=== PATIENT | female | born 1950 | race Caucasian/White ===

== ENCOUNTER → 2017-09-10 | Outpatient (CLI) | payer OTHER, MEDICARE | LOC: BMCIMAGING 08:48 | PROVIDERS: ATTEND Internal Medicine Rheumatology | DX: M25.862 Other specified joint disorders, left knee (principal); M25.551 Pain in right hip ==

== ENCOUNTER → 2017-12-03 | Outpatient (CLI) | payer OTHER, MEDICARE | LOC: BMCIMAGING 10:52 | PROVIDERS: ATTEND Orthopaedic Surgery | PROC: 3E0U3GC Introduction of Other Therapeutic Substance into Joints, Percutaneous Approach (ICD-10-PCS; principal; 2017-12-03) | DX: M25.551 Pain in right hip (principal) ==

== ENCOUNTER → 2017-12-12 | Outpatient (CLI) | payer OTHER, MEDICARE | LOC: FIMAGING 11:52 | PROVIDERS: ATTEND Orthopaedic Surgery | DX: Z01.818 Encounter for other preprocedural examination (principal); M17.12 Unilateral primary osteoarthritis, left knee ==

== ENCOUNTER 2018-01-06 06:05 | Observation (INO) | payer OTHER, MEDICARE ==
[~2018-01-06 06:05] MED LIST: ROPIVACAINE 0.2% 80 MG, EPINEPHrine 0.2 MG, KETOROLAC TROMETHAMINE 30 MG, morphINE 10 M... IU ONE; TRANEXAMIC ACID 1,000 MG in NS 100 ML IV ONE
--- NOTE | 2018-01-06 06:14 | PDHPUP ---
History & Physical Update H&P update statement: This history and physical update is based on an assessment of the patient which was completed after admission or registration (within 24 hours), but prior to the surgery/procedure. H&P update: no change in patient's condition since H&P completed
--- NOTE | 2018-01-06 06:15 | PDIAF ---
- Diagnosis Diagnosis: left knee djd Code Status: Full Code - Medication Management Discharge Medications: Medications to Continue on Transfer Chlorthalidone 12/12/17 [Last Taken Unknown] Cholecalciferol (Vitamin D3) 12/12/17 [Last Taken Unknown] Ibuprofen 12/12/17 [Last Taken Unknown] Iron 12/12/17 [Last Taken Unknown] Magnesium 12/12/17 [Last Taken Unknown] Potassium Chloride 12/12/17 [Last Taken Unknown] Ranitidine HCl 12/12/17 [Last Taken Unknown] Sertraline HCl 12/12/17 [Last Taken Unknown] Voltaren 0.1% (*) 12/12/17 [Last Taken Unknown] Zolpidem Tartrate 12/12/17 [Last Taken Unknown] Discharge Medications: Refer to the Discharge Home Medication list for PRN reason. - Orders Services needed: Physical Therapy Diet Recommendation: no restrictions on diet Diet Texture: Regular Texture Diet Additional Instructions: TOTAL JOINT ARTHROPLASTY DISCHARGE INSTRUCTIONS 1. Your surgeon follows the [facility] protocol for reducing your risk of DVT (blood clots) following surgery. Medication will be ordered to prevent blood clots. A sudden increase in calf pain and/or swelling could indicate a blood clot in your leg. If this occurs, please call your surgeon or his/her child development assistant. An ultrasound of the leg may be necessary to diagnose a blood clot. If you have conditions that make you a higher risk for blood clots, your surgeon may use more aggressive ways to prevent them. Notify your surgeon if you think you are a high risk for blood clots. 2. Wear your white surgical stockings (SKY hose) for 2 weeks. This decreases your swelling and may help prevent blood clots. It is ok to remove SKY hose at night time to give your legs a break. 3. Swelling and bruising in the surgical leg is common. If you feel that it is excessive, please notify your surgeon. 4. Elevate your surgical leg with the ankle above the hip several times every day. Please keep the leg straight when you elevate by putting pillows under your foot. Do not put pillows under your knee. This will make being able to fully straighten more difficult. This is uncomfortable, but try to do it as much as possible. 5. For total knee replacements use compressive wrap on your knee for 3-5 days after surgery, then you can discontinue it. 6. Use a walker or crutches for 1-2 weeks. Progress your weight-bearing as tolerated. You may start to use a cane when you feel stable and safe. 7. You will receive physical therapy instructions in the hospital. Continue those exercises at home. There are additional exercises in the total joint booklet you were given before surgery. Outpatient physical therapy will begin 7- 10 days after surgery. Please schedule this in advance. 8. Use ice on your knee at least 3-5 times every day for 30 minutes. This helps reduce pain and swelling. Also use it at night before falling asleep. 9. Leave your surgical dressing in place for 2 weeks. Your dressing is water resistant, but not waterproof. Cover it with Saran Wrap or Necto-f-Hegb before showering. You may shower as soon as you feel safe entering a shower. If you notice bleeding from your incision 2 or 3 days after surgery, please notify your surgeon. 10. Due to narcotics, decreased activity and altered diet, most patients experience constipation after surgery. Use ffze-pff-lbtjlsm stool softeners while you are on narcotics. 11. You may drive a car when you are comfortable bearing weight, have good muscular control of your leg and are off narcotics. This usually occurs 2-4 weeks after surgery, depending on which leg was operated on. 12. If there are questions not addressed here, please refer the [facility] book given for more information. If you still have questions, please contact your surgeon s office. 13. If you have a life-threatening emergency, please call 911 and go to the emergency room immediately. For non-life threatening emergencies, please call your physicians office for advice before going to the emergency room. - Follow Up Care Current Providers and Referrals: Carli Harding PA [Primary Care Provider] - Paul Hutson MD [Medical Doctor] -
[2018-01-06] MEDS ORDERED: ceFAZolin 2 GM/DEXTROSE 100 ML IV ONE (06:23)
[2018-01-06] MEDS ORDERED: LIDOCAINE 1% 2 ML INJ ID PRN (06:23)
[2018-01-06] MEDS ORDERED: ACETAMINOPHEN 325 MG TAB PO ONE (06:23)
[2018-01-06] MEDS ORDERED: FAMOTIDINE 20 MG TAB PO ONE (06:23)
[2018-01-06] MEDS ORDERED: LR 1,000 ML IV ONE (06:23)
[2018-01-06] MEDS ORDERED: ceFAZolin 1 GM/5 ML SYR ONE (06:28)
--- NOTE | 2018-01-06 06:52 | PDANEPAE ---
ANE Past Medical History - Cardiovascular History Hx Hypertension: Yes Hx Arrhythmias: No Hx Chest Pain: No Hx Coronary Artery / Peripheral Vascular Disease: No Hx CHF / Valvular Disease: No Hx Palpitations: No - Pulmonary History Hx COPD: No Hx Asthma/Reactive Airway Disease: No Hx Recent Upper Respiratory Infection: No Hx Oxygen in Use at Home: No Hx Sleep Apnea: No Sleep Apnea Screening Result - Last Documented: Negative - Neurologic History Hx Cerebrovascular Accident: No Hx Seizures: No Hx Dementia: No - Endocrine History Hx Diabetes: No Hypothyroid: No Hyperthyroid: No Obesity: no - Renal History Hx Renal Disorders: No - Liver History Hx Hepatic Disorders: No - Neurological & Psychiatric Hx Hx Neurological and Psychiatric Disorders: Yes Neurological / Psychiatric History Comment: anxiety - Cancer History Hx Cancer: No - Congenital Disorder History Hx Congenital Disorders: No - GI History GERD: mild Hx Gastrointestinal Disorders: Yes Gastrointestinal History Comment: reflux,gerd,diverticulitis - Other Health History Other Health History: bilat leg itching. anemia. hysterectomy - Chronic Pain History Chronic Pain: Yes (right groin area) - Surgical History Prior Surgeries: arthroscopic L knee sx 12/15. hysterectomy 1999. cataract bilat ANE Review of Systems Review of Systems: - Exercise capacity METS (RN): 4 METS ANE Patient History - Allergies Allergies/Adverse Reactions: No Known Allergies Allergy (Verified 12/12/17 15:52) - Home Medications Home Medications: Chlorthalidone 12/12/17 [Last Taken 11/08/17] Cholecalciferol (Vitamin D3) 12/12/17 [Last Taken 01/01/18] Ibuprofen 12/12/17 [Last Taken 12/29/17] Iron 12/12/17 [Last Taken 01/01/18] Magnesium 12/12/17 [Last Taken 01/01/18] Potassium Chloride 12/12/17 [Last Taken 01/01/18] Ranitidine HCl 12/12/17 [Last Taken 01/01/18] Sertraline HCl 12/12/17 [Last Taken 01/05/18] Voltaren 0.1% (*) 12/12/17 [Last Taken 01/02/18] Zolpidem Tartrate 12/12/17 [Last Taken 01/05/18] - Anes Hx Anes Hx: no prior problems - Smoking Hx Smoking Status: Former smoker - Alcohol Use Alcohol Use: Occasionally - Family Anes Hx Family Anes Hx: neg - N/A Family Hx Anesthesia Complications: none ANE Labs/Vital Signs - Vital Signs Height: 160.02 cm Weight: 69.4 kg ANE Physical Exam - Airway Neck exam: FROM Mallampati Score: Class 2 Mouth exam: normal dental/mouth exam - Pulmonary Pulmonary: no respiratory distress, no rales or rhonchi, clear to auscultation - Cardiovascular Cardiovascular: regular rate and rhythym, no murmur, rub, or gallop - ASA Status ASA Status: II ANE Anesthesia Plan Anesthesia Plan: MAC, spinal Regional Anesthesia: single shot NB, adductor canal FNB Total IV Anesthesia: No
[2018-01-06] MEDS ORDERED: MIDAZOLAM 2 MG/2 ML VIAL ONE (07:05)
[2018-01-06] MEDS ORDERED: MIDAZOLAM 2 MG/2 ML VIAL IVP ONE (07:05)
[2018-01-06] MEDS ORDERED: fentaNYL 100 MCG/2 ML INJ ONE ×2 (07:12→09:35)
[2018-01-06] MEDS ORDERED: PROPOFOL/EMULSION 500 MG/50 ML BOTTLE IV ONE (07:13)
[2018-01-06] MEDS ORDERED: RANITIDINE 50 MG/2 ML VIAL ONE (07:29)
[2018-01-06] MEDS ORDERED: SUCCINYLCHOLINE CHLORIDE 200 MG/10 ML SYR IVP ONE (07:42)
[2018-01-06] MEDS ORDERED: THROMBIN (BOVINE) 5,000 UNIT VIAL TP ONE (07:45)
[2018-01-06] MEDS ORDERED: CALCIUM CHLORIDE 1 GM/10 ML INJ ONE (07:45)
[2018-01-06] MEDS ORDERED: oxyCODONE IR 5 MG TAB PO PRN (08:04)
[2018-01-06] MEDS ORDERED: ONDANSETRON 4 MG/2 ML VIAL IVP PRN ×2 (08:04→08:21)
[2018-01-06] MEDS ORDERED: LR 500 ML IV PRN (08:04)
[2018-01-06] MEDS ORDERED: HYDROCODONE/APAP 5/325 TAB PO PRN (08:04)
[2018-01-06] MEDS ORDERED: PHENYLEPHRINE HCL 100 MCG/ML SYR IVP PRN (08:04)
[2018-01-06] MEDS ORDERED: PROMETHAZINE HCL 25 MG/ML INJ IVP PRN ×2 (08:04→08:21)
[2018-01-06] MEDS ORDERED: ACETAMINOPHEN 500 MG TAB PO PRN (08:04)
[2018-01-06] MEDS ORDERED: NALOXONE HCL 0.4 MG/ML INJ IVP PRN (08:04)
[2018-01-06] MEDS ORDERED: DEXAMETHASONE 4 MG/ML VIAL ONE (08:07)
[2018-01-06] MEDS ORDERED: KETOROLAC 30 MG/1 ML SDV ONE (08:16)
[2018-01-06] MEDS ORDERED: ROPIVACAINE HCL 150 MG/30 ML INJ ONE (08:16)
[2018-01-06] MEDS ORDERED: DIPHENOXYLATE/ATROPINE LOMOTIL 1 TAB PO PRN (08:21)
[2018-01-06] MEDS ORDERED: diphenhydrAMINE 25 MG CAP PO PRN (08:21)
[2018-01-06] MEDS ORDERED: traMADol 50 MG TAB PO PRN (08:21)
[2018-01-06] MEDS ORDERED: CYCLOBENZAPRINE 10 MG TAB PO PRN (08:21)
[2018-01-06] MEDS ORDERED: BISACODYL 10 MG SUPP PR PRN (08:21)
[2018-01-06] MEDS ORDERED: ONDANSETRON DISINTEGRATING 4 MG TAB PO PRN (08:21)
[2018-01-06] MEDS ORDERED: PROMETHAZINE HCL 25 MG SUPPR PR PRN (08:21)
[2018-01-06] MEDS ORDERED: LACTULOSE 20 GM/30 ML UDCUP PO PRN (08:21)
[2018-01-06] MEDS ORDERED: TEMAZEPAM 15 MG CAP PO PRN (08:21)
[2018-01-06] MEDS ORDERED: METOCLOPRAMIDE 10 MG/2 ML VIAL IVP PRN (08:21)
[2018-01-06] MEDS ORDERED: POLYETHYLENE GLYCOL 3350 17 GM PKT PO PRN (08:21)
[2018-01-06] MEDS ORDERED: MAGNESIUM HYDROXIDE 30 ML UDCUP PO PRN (08:21)
--- NOTE | 2018-01-06 08:24 | POSTOPPROG ---
Post Op Note Date of Operation: 01/06/18 Surgeon: Paul Hutson Swing Saw Operator: seema Anesthesiologist: heather Anesthesia: GET(General Endotracheal), Spinal Pre-op Diagnosis: left knee djd Post-op Diagnosis: sa me Indication: same Procedure: left tka Inf/Abcess present in the surg proc area at time of surgery?: No Depth: Deep Incisional (Fascial) EBL: 100-500
[2018-01-06] MEDS ORDERED: TRANEXAMIC ACID 650 MG TAB PO SCH (08:30)
[2018-01-06] MEDS ORDERED: LR 1,000 ML IV SCH (08:30)
[2018-01-06] MEDS ORDERED: BUPIVACAINE/DEXTROSE 7.5MG/ML 2 ML SPINAL AMP SP ONE (09:14)
[2018-01-06] MEDS: fentaNYL 100 MCG/2 ML INJ IVP PRN ×2 (09:37→09:42)
--- NOTE | 2018-01-06 10:05 | POSTANESTH ---
Post Anesthetic Evaluation Cardiovascular Status: Normal, Stable Respiratory Status: Normal, Stable Level of Consciousness/Mental Status: Can Participate in Eval Pain Control: Adequate, Prn Tx Ordered Nausea/Vomiting Control: Adequate, Prn Tx Ordered Complications Possibly Related to Anesthesia: None Noted
[2018-01-06] MEDS: SENNOSIDES/DOCUSATE SODIUM TAB PO SCH ×2 (10:58→20:36)
[2018-01-06] MEDS: ceFAZolin 2 GM/DEXTROSE 100 ML IV SCH ×2 (13:26→22:18)
[2018-01-06] MEDS: ACETAMINOPHEN 325 MG TAB PO SCH ×3 (13:26→23:18)
[2018-01-06] MEDS: TRANEXAMIC ACID 650 MG TAB PO SCH ×2 (13:26→22:17)
[2018-01-06] MEDS: oxyCODONE IR 5 MG TAB PO PRN (18:22)
[2018-01-06] MEDS: FAMOTIDINE 20 MG TAB PO SCH (20:36)
[2018-01-06] MEDS: ASPIRIN 325 MG TAB PO SCH (20:36)
[2018-01-07] MEDS: ACETAMINOPHEN 325 MG TAB PO SCH ×2 (05:59→12:15)
[2018-01-07] MEDS: TRANEXAMIC ACID 650 MG TAB PO SCH (05:59)
[2018-01-07 07:26] VITALS: BP 149/73
[2018-01-07] MEDS: FAMOTIDINE 20 MG TAB PO SCH (08:20)
[2018-01-07] MEDS: ASPIRIN 325 MG TAB PO SCH (08:20)
[2018-01-07] MEDS: oxyCODONE IR 5 MG TAB PO PRN ×2 (08:20→12:16)
[2018-01-07] MEDS: SENNOSIDES/DOCUSATE SODIUM TAB PO SCH (08:20)
--- NOTE | 2018-01-07 10:03 | PDIAF ---
- Diagnosis Diagnosis: left knee djd Code Status: Full Code - Medication Management Discharge Medications: Medications to Continue on Transfer Cholecalciferol Vit D3 [Vitamin D3 (*)] 1,000 units PO DAILY 01/06/18 [Last Taken 01/01/18] Herbals/Supplements -Info Only 1 ea PO DAILY 01/06/18 [Last Taken 01/01/18] Ibuprofen [Ibu] 800 mg PO BID 01/06/18 [Last Taken 01/01/18] Ranitidine HCl [Zantac 75] 75 mg PO DAILY PRN 01/06/18 [Last Taken Unknown] Sertraline HCl [Zoloft 50mg (*)] 50 mg PO DAILY 01/06/18 [Last Taken 01/05/18] Zolpidem Tartrate [Ambien 5MG (*)] 5 mg PO HS 01/06/18 [Last Taken 01/05/18] buPROPion XL [Wellbutrin 150mg XL] 300 mg PO DAILY 01/06/18 [Last Taken 01/05/18 ] Aspirin [Aspirin 325 mg (*)] 325 mg PO DAILY tab 01/07/18 [Last Taken Unknown] oxyCODONE IR [Oxycodone Ir (*)] 5 - 10 mg PO Q3HRS PRN #60 tab 01/07/18 [Last Taken Unknown] Discharge Medications: Refer to the Discharge Home Medication list for PRN reason. - Orders Services needed: Physical Therapy Diet Recommendation: no restrictions on diet Diet Texture: Regular Texture Diet Additional Instructions: TOTAL JOINT ARTHROPLASTY DISCHARGE INSTRUCTIONS 1. Your surgeon follows the [facility] protocol for reducing your risk of DVT (blood clots) following surgery. Medication will be ordered to prevent blood clots. A sudden increase in calf pain and/or swelling could indicate a blood clot in your leg. If this occurs, please call your surgeon or his/her funeral home assistant. An ultrasound of the leg may be necessary to diagnose a blood clot. If you have conditions that make you a higher risk for blood clots, your surgeon may use more aggressive ways to prevent them. Notify your surgeon if you think you are a high risk for blood clots. 2. Wear your white surgical stockings (SKY hose) for 2 weeks. This decreases your swelling and may help prevent blood clots. It is ok to remove SKY hose at night time to give your legs a break. 3. Swelling and bruising in the surgical leg is common. If you feel that it is excessive, please notify your surgeon. 4. Elevate your surgical leg with the ankle above the hip several times every day. Please keep the leg straight when you elevate by putting pillows under your foot. Do not put pillows under your knee. This will make being able to fully straighten more difficult. This is uncomfortable, but try to do it as much as possible. 5. For total knee replacements use compressive wrap on your knee for 3-5 days after surgery, then you can discontinue it. 6. Use a walker or crutches for 1-2 weeks. Progress your weight-bearing as tolerated. You may start to use a cane when you feel stable and safe. 7. You will receive physical therapy instructions in the hospital. Continue those exercises at home. There are additional exercises in the total joint booklet you were given before surgery. Outpatient physical therapy will begin 7- 10 days after surgery. Please schedule this in advance. 8. Use ice on your knee at least 3-5 times every day for 30 minutes. This helps reduce pain and swelling. Also use it at night before falling asleep. 9. Leave your surgical dressing in place for 2 weeks. Your dressing is water resistant, but not waterproof. Cover it with Saran Wrap or Oxkuy-z-Nsse before showering. You may shower as soon as you feel safe entering a shower. If you notice bleeding from your incision 2 or 3 days after surgery, please notify your surgeon. 10. Due to narcotics, decreased activity and altered diet, most patients experience constipation after surgery. Use miot-dhi-penpmov stool softeners while you are on narcotics. 11. You may drive a car when you are comfortable bearing weight, have good muscular control of your leg and are off narcotics. This usually occurs 2-4 weeks after surgery, depending on which leg was operated on. 12. If there are questions not addressed here, please refer the [facility] book given for more information. If you still have questions, please contact your surgeon s office. 13. If you have a life-threatening emergency, please call 911 and go to the emergency room immediately. For non-life threatening emergencies, please call your physicians office for advice before going to the emergency room. - Follow Up Care Current Providers and Referrals: Carli Harding PA [Primary Care Provider] - Paul Hutson MD [Medical Doctor] -
--- NOTE | 2018-01-07 10:04 | SOAPPROG ---
SOAP Progress Note Assessment/Plan: Assessment: s/p tka Plan:d/c home stable no acute issues dvt precautions reviewed 01/07/18 10:03 Subjective: mild pain no cp or sob Objective: Vital Signs Temp Pulse Resp BP Pulse Ox 36.6 C 63 14 149/73 H 97 01/07/18 07:26 01/07/18 07:26 01/07/18 07:26 01/07/18 07:26 01/07/18 07:26 Laboratory Results 01/07/18 04:22 01/06/18 01/07/18 01/08/18 05:59 05:59 05:59 Intake Total 1400 Output Total 2250 Balance -850 dressing with serrous drainage intact pf,df,ehl neg homans xrays stable alignment no fx or lucency ICD10 Worksheet Patient Problems: Problems Problem Status Onset Arthritis of knee Acute - ICD10 Problem Qualifiers (1) Arthritis of knee
--- NOTE | 2018-01-07 16:46 | ASMTCMCOM ---
CM Note CM Note Notes: Pt medically stable for d/c with [facility] PT. Orders to be obtained via [employer]. Date Signed: 01/07/2018 04:46 PM Electronically Signed By:KYUNG Kennedy
--- NOTE | 2018-01-07 16:47 | ASDISCHSUM ---
Discharge Information Plan Status:Home with Home Health Medically Cleared to Leave: Discharge Date:01/07/2018 12:39 PM CM D/C Disposition:Home Health Service ADT D/C Disposition:Home Health Service Projected Discharge Date:01/07/2018 11:00 AM Transportation at D/C: Discharge Delay Reason: Follow-Up Date:01/07/2018 11:00 AM Discharge Slot: Final Diagnosis: Placement Information Referral Type:*Home Health Care Services [facility] ID[id number] Provider Name:[facility] Address [address] [place] [address] Address 2: City:[place] Selection Factors: State:[place] Patient Contact Information Contact Name:DELVINYuri Relationship: Address: Work Phone: City: [facility] Phone: [facility] Code: Email: Financial Information Financial Class:Medicare Primary Plan Desc:MEDICARE OUTPATIENT Primary Plan Number:[id number] Secondary Plan Desc:[employer]/MDR SUPPLEMENT Secondary Plan Number:[id number] Assessment Information BC CM Progress Note CM Note CM Note Notes: Pt medically stable for d/c with [facility] PT. Orders to be obtained via [employer]. Date Signed: 01/07/2018 04:46 PM Electronically Signed By:KYUNG Kennedy Intervention Information Intervention Type:*Incorrect Registration Date of Service:01/06/2018 12:08 PM Patient Type:Inpatient Staff Member:YANE Gonzalez Courtney Hours: Discipline: Severity: Comment:
--- NOTE | 2018-01-15 11:43 | GDS ---
[f rep st] DISCHARGE SUMMARY ADMISSION DIAGNOSIS: Left knee degenerative joint disease. DISCHARGE DIAGNOSIS: Left knee degenerative joint disease. PROCEDURE: Left total knee arthroplasty, MAKOplasty. HISTORY OF PRESENT ILLNESS: The patient is a 67-year-old woman who presented for elective total knee replacement. HOSPITAL COURSE: The patient was admitted to the hospital with uncomplicated total knee arthroplasty . She progressed slowly with physical therapy. At the time of discharge, she was tolerating an oral diet. Pain is well controlled on oral medicines. She is voiding without difficulty. Her bilateral lower extremities demonstrate no evidence of deep venous thrombosis. Her x-rays are stable, and she has been cleared by Physical Therapy. DISCHARGE ACTIVITY: She is weightbearing, range of motion as tolerated. Daily dressing changes. No soaking or immersion. May shower without the bandage if necessary. She is to seek attention for in creasing redness, swelling, drainage, discharge, or other focal complaints. Otherwise, follow up in 2 weeks. DISCHARGE MEDICATIONS: Oxycodone 5 mg 1-2 every 3 hours p.r.n. pain, aspirin 325 mg p.o. daily. /[id number]/MODL
--- NOTE | 2018-01-15 11:52 | GOP ---
[f rep st] OPERATIVE REPORT DATE OF OPERATION: 01/06/2018 SURGEON: Paul Hutson MD DYE BLENDER: Lon Maguire, instructor adjunct surgical technician who was a medical necessity for the entirety of the c ase. PREOPERATIVE DIAGNOSIS: Left knee arthritis. POSTOPERATIVE DIAGNOSIS: Left knee arthritis. PROCEDURE PERFORMED: Left total knee arthroplasty. FINDINGS: SPECIMENS: To Pathology, the bony cuts. INDICATIONS: The patient is a 67-year-old woman with end-stage arthritis to her left knee. She pres ents today for elective total knee replacement. She understands the risks, benefits, and alternative s, and wished to proceed. Written consent was signed and placed in patient's chart. DESCRIPTION OF PROCEDURE: Patient was identified in the preanesthesia area. The left knee clearly d emarcated as the operative site with indelible marker. She was given 2 g of Ancef intravenously en r oute to the operative suite. In the OR, spinal anesthetic was placed, followed by additional sedatio n. Attention was turned to the left knee, which was sterilely prepped and draped in the usual fashio n. A tourniquet was applied to the upper thigh. Appropriate time-out procedure was carried out. Th e limb was exsanguinated with an Esmarch bandage. Tourniquet inflated to 275 mmHg. Standard anterior midline incision was made. Thick subcutaneous flaps were elevated, followed by med ial parapatellar arthrotomy. Subperiosteal elevation was carried out to the mid coronal plane. Retr actors were placed. The knee was brought to a flexed position. There was tricompartmental arthritis and an additional incision was made over the distal mid tibial. Two pins were then placed and the tibial reference array affixed the tibial and femoral check points were placed. Two pins were placed medial all across the distal femur and the femoral reference array affixed. All bony landmarks were then entered into the computer. The marginal osteophytes were wit hdrawn. The knee was balanced through the flexion-extension arc with the software and soft tissue re leases. Using the MAKOplasty robot, resections were then made for a size 4 femur, size 3 tibia, and trial red uctions were carried out with a 3 x 9 mm polyethylene spacer. This allowed full extension and flexio n without instability to varus valgus stress throughout the flexion-extension arc. The trial compone nts were withdrawn. In a sequential fashion, the tibial component was press fit, the femoral compone nt was press fit, and a 3 x 9 mm polyethylene spacer was then placed and confirmed to be fully seated . The knee was stable as previous. The knee was brought into extension. The kneecap was everted, c ut in a freehand cutting technique, and drill holes made for a a metal-backed press-fit patella 32 mm in diameter. The patella was then press fit. Knee was taken through flexion extension. Patella tracked centrally. The wound was then copiously i rrigated. The soft tissues injected with a joint cocktail of ropivacaine, morphine, Toradol, and epi nephrine. A medial parapatellar arthrotomy was closed using #1 Ethibond. The knee instilled with pl atelet-rich plasma. Subcutaneous tissue closed in layers using 2-0 Monocryl and ilia, and a steri le dressing was applied. The patient was awakened, extubated, and taken to recovery room in good sta ble condition. TOTAL TOURNIQUET TIME: 60 minutes. COMPLICATIONS: None. IMPLANTS: The Gio Triathlon size 4 femur, size 3 tibia, 3 x 9 mm polyethylene spacer, and a 32 m m patella. DISPOSITION: To the recovery room, then the floor. /[id number]/MODL
== END 2018-01-07 12:39 | disposition home health service (06) ==
LOC: F3N 06:05 → INTOOBSV 06:05 → F3N 10:05
PROVIDERS: ADMIT Orthopaedic Surgery; ATTEND Orthopaedic Surgery
PROC: 0SRD0JZ Replacement of Left Knee Joint with Synthetic Substitute, Open Approach (ICD-10-PCS; principal; 2018-01-06 07:15)
PROC: 8E0Y0CZ Robotic Assisted Procedure of Lower Extremity, Open Approach (ICD-10-PCS; principal; 2018-01-06 07:15)
DX: M17.12 Unilateral primary osteoarthritis, left knee (principal); I10 Essential (primary) hypertension; K21.9 Gastro-esophageal reflux disease without esophagitis; F41.9 Anxiety disorder, unspecified
CPT/HCPCS: 27447; 73560; 88305; 88311; 97110; 97116; 97161; 97165; 97530; C1776; G8978; G8979; G8980; G8987; G8988; G8989; J0171; J0330; J0690; J1100; J1885; J2250; J2270; J2704; J2780; J2795; J3010

== ENCOUNTER → 2018-02-14 | Outpatient (CLI) | payer OTHER, MEDICARE | LOC: BMCIMAGING 08:29 | PROVIDERS: ATTEND Physician Assistant | DX: Z09 Encounter for follow-up examination after completed treatment for conditions other than malignant neoplasm (principal); Z96.652 Presence of left artificial knee joint ==

== ENCOUNTER → 2018-03-26 | Outpatient (CLI) | payer OTHER, MEDICARE | LOC: BMCIMAGING 09:34 | PROVIDERS: ATTEND Orthopaedic Surgery | DX: Z47.1 Aftercare following joint replacement surgery (principal); Z96.652 Presence of left artificial knee joint ==

== ENCOUNTER → 2018-03-26 | Outpatient (CLI) | payer OTHER, MEDICARE | LOC: FIMAGING 11:03 | PROVIDERS: ATTEND Physician Assistant | DX: Z12.31 Encounter for screening mammogram for malignant neoplasm of breast (principal) ==

== ENCOUNTER → 2018-06-26 | Outpatient (CLI) | payer OTHER, MEDICARE | LOC: BMCLAB 09:15 → BMCIMAGING 09:15 → EDSTATUS 09:49 | PROVIDERS: ATTEND Orthopaedic Surgery | DX: Z47.1 Aftercare following joint replacement surgery (principal); Z96.652 Presence of left artificial knee joint ==

== ENCOUNTER → 2018-08-27 | Outpatient (CLI) | payer OTHER, MEDICARE | LOC: BMCIMAGING 10:35 | PROVIDERS: ATTEND Physician Assistant | DX: M25.462 Effusion, left knee (principal); Z96.652 Presence of left artificial knee joint ==

== ENCOUNTER 2018-09-17 10:19 | Inpatient (IN) | payer OTHER, MEDICARE ==
[2018-09-17] MEDS ORDERED: ACETAMINOPHEN 325 MG TAB PO ONE (13:09)
[2018-09-17] MEDS ORDERED: FAMOTIDINE 20 MG TAB PO ONE (13:09)
[2018-09-17] MEDS ORDERED: ROPIVACAINE 0.2% 80 MG, EPINEPHrine 0.2 MG, KETOROLAC TROMETHAMINE 30 MG, morphINE 10 M... IU ONE (13:09)
[2018-09-17] MEDS ORDERED: TRANEXAMIC ACID 1,000 MG in NS 100 ML IV ONE (13:09)
[2018-09-17] MEDS ORDERED: LR 1,000 ML IV ONE (13:12)
[2018-09-17] MEDS ORDERED: MIDAZOLAM 2 MG/2 ML VIAL IVP ONE (13:37)
--- NOTE | 2018-09-17 13:39 | PDANEPAE ---
ANE Past Medical History - Cardiovascular History Hx Hypertension: No Hx Arrhythmias: No Hx Chest Pain: No Hx Coronary Artery / Peripheral Vascular Disease: No Hx CHF / Valvular Disease: No Hx Palpitations: No - Pulmonary History Hx COPD: No Hx Asthma/Reactive Airway Disease: No Hx Recent Upper Respiratory Infection: No Hx Oxygen in Use at Home: No Hx Sleep Apnea: No Sleep Apnea Screening Result - Last Documented: Negative - Neurologic History Hx Cerebrovascular Accident: No Hx Seizures: No Hx Dementia: No - Endocrine History Hx Diabetes: No - Renal History Hx Renal Disorders: No - Liver History Hx Hepatic Disorders: No - Neurological & Psychiatric Hx Hx Neurological and Psychiatric Disorders: Yes Neurological / Psychiatric History Comment: anxiety - Cancer History Hx Cancer: No - Congenital Disorder History Hx Congenital Disorders: No - GI History Hx Gastrointestinal Disorders: Yes Gastrointestinal History Comment: reflux,gerd,diverticulitis. GERD controlled with meds and food related - Other Health History Other Health History: SEVERE SWELLING LT KNEE 2 MONTHS POST REPLACEMENT.INCREASED SWELLING AND DISCOMFORT. NEW DX STAPH INFECTION. bilat leg itching. anemia - Chronic Pain History Chronic Pain: Yes (LT KNEE) - Surgical History Prior Surgeries: LT TOTAL KNEE 01/07/18. arthroscopic L knee sx 12/15. hysterectomy 1999. cataract bilat ANE Review of Systems Review of Systems: - Exercise capacity METS (RN): 4 METS ANE Patient History - Allergies Allergies/Adverse Reactions: No Known Allergies Allergy (Verified 12/12/17 15:52) - Home Medications Home Medications: Ranitidine HCl [Zantac 75] 75 mg PO DAILY PRN 01/06/18 [Last Taken Unknown] Sertraline HCl [Zoloft 50mg (*)] 50 mg PO DAILY 01/06/18 [Last Taken 01/05/18] buPROPion XL [Wellbutrin 150mg XL] 300 mg PO DAILY 01/06/18 [Last Taken 01/05/18 ] Ibuprofen BID 09/16/18 [Last Taken Unknown] - Smoking Hx Smoking Status: Former smoker - Family Anes Hx Family Hx Anesthesia Complications: none ANE Labs/Vital Signs - Vital Signs Height: 160.02 cm Weight: 74.389 kg ANE Physical Exam - Airway Mallampati Score: Class 2 Mouth exam: normal dental/mouth exam - Pulmonary Pulmonary: no respiratory distress, no rales or rhonchi, clear to auscultation - Cardiovascular Cardiovascular: regular rate and rhythym, no murmur, rub, or gallop - ASA Status ASA Status: II ANE Anesthesia Plan Anesthesia Plan: general endotracheal anesthesia
--- NOTE | 2018-09-17 13:57 | PDIAF ---
- Diagnosis Diagnosis: left failed tka Code Status: Full Code - Medication Management Discharge Medications: electronically signed and located in the Home Medication List. - Orders Services needed: Home Care, Physical Therapy Home Care Face to Face: I certify that this patient was under my care and that I had the required igni-jl-vkow encounter meeting the encounter requirements on the discharge day. My findings support the fact that the patient is homebound as defined in Home Care Face to Face Continued: CMS Chapter 7 Medicare Benefits Manual 30.1.1 , The condition of the patient is such that there exists a normal inability to leave home and consequently, leaving home would require a considerable and taxing effort. Diet Recommendation: no restrictions on diet Diet Texture: Regular Texture Diet Additional Instructions: tdwb with leg locked in straight leg immobilizer no rom keep clean, dry and intact f/u at two weeks - Follow Up Care Current Providers and Referrals: Paul Hutson MD [Primary Care Provider] -
[2018-09-17] MEDS ORDERED: LIDOCAINE 2% 5 ML SDV ONE (14:03)
[2018-09-17] MEDS ORDERED: ROCURONIUM 50 MG/5 ML VIAL ONE (14:03)
[2018-09-17] MEDS ORDERED: DEXAMETHASONE 4 MG/ML VIAL ONE (14:03)
[2018-09-17] MEDS ORDERED: ONDANSETRON 4 MG/2 ML VIAL ONE (14:03)
[2018-09-17] MEDS ORDERED: PROPOFOL 200 MG/20 ML VIAL ONE (14:04)
[2018-09-17] MEDS ORDERED: fentaNYL 100 MCG/2 ML INJ ONE ×3 (14:04→18:15)
[2018-09-17] MEDS ORDERED: BUPIVACAINE/EPI 0.5% 30 ML SDV ONE (14:33)
[2018-09-17] MEDS ORDERED: VANCOMYCIN 1 GM VIAL ONE (14:33)
[2018-09-17] MEDS ORDERED: ceFAZolin 1 GM/5 ML SYR ONE (14:34)
[2018-09-17] MEDS ORDERED: HYDROmorphONE/DILAUDID 2 MG/ML INJ ONE (16:01)
[2018-09-17] MEDS ORDERED: PHENYLEPHRINE HCL 100 MCG/ML SYR IVP PRN (16:03)
[2018-09-17] MEDS ORDERED: MEPERIDINE 25 MG/0.5 ML AMP IVP PRN (16:03)
[2018-09-17] MEDS ORDERED: LR 500 ML IV PRN (16:03)
[2018-09-17] MEDS ORDERED: PROMETHAZINE HCL 25 MG/ML INJ IVP PRN ×2 (16:03→17:26)
[2018-09-17] MEDS ORDERED: fentaNYL 100 MCG/2 ML INJ IVP PRN (16:03)
[2018-09-17] MEDS ORDERED: ONDANSETRON 4 MG/2 ML VIAL IVP PRN ×2 (16:03→17:26)
[2018-09-17] MEDS ORDERED: NS 500 ML IV PRN (16:03)
[2018-09-17] MEDS ORDERED: oxyCODONE IR 5 MG TAB PO PRN (16:03)
[2018-09-17] MEDS ORDERED: METOCLOPRAMIDE 10 MG/2 ML VIAL IVP PRN ×2 (16:03→17:26)
[2018-09-17] MEDS ORDERED: HYDROmorphONE/DILAUDID 2 MG/ML INJ IVP PRN (16:03)
[2018-09-17] MEDS ORDERED: DIAZEPAM 5 MG/ML 1 ML SYR IVP PRN (16:03)
[2018-09-17] MEDS ORDERED: NALOXONE HCL 0.4 MG/ML INJ IVP PRN (16:03)
[2018-09-17] MEDS ORDERED: ROPIVACAINE HCL 150 MG/30 ML INJ ONE (17:00)
[2018-09-17] MEDS ORDERED: SUGAMMADEX SODIUM 200 MG/2 ML VIAL IVP ONE (17:00)
[2018-09-17] MEDS ORDERED: ONDANSETRON DISINTEGRATING 4 MG TAB PO PRN (17:26)
[2018-09-17] MEDS ORDERED: MAGNESIUM HYDROXIDE 30 ML UDCUP PO PRN (17:26)
[2018-09-17] MEDS ORDERED: DIPHENOXYLATE/ATROPINE LOMOTIL 1 TAB PO PRN (17:26)
[2018-09-17] MEDS ORDERED: BISACODYL 10 MG SUPP PR PRN (17:26)
[2018-09-17] MEDS ORDERED: TEMAZEPAM 15 MG CAP PO PRN (17:26)
[2018-09-17] MEDS ORDERED: PROMETHAZINE HCL 25 MG SUPPR PR PRN (17:26)
[2018-09-17] MEDS ORDERED: diphenhydrAMINE 25 MG CAP PO PRN (17:26)
[2018-09-17] MEDS ORDERED: POLYETHYLENE GLYCOL 3350 17 GM PKT PO PRN (17:26)
[2018-09-17] MEDS ORDERED: LACTULOSE 20 GM/30 ML UDCUP PO PRN (17:26)
--- NOTE | 2018-09-17 17:26 | POSTOPPROG ---
Post Op Note Date of Operation: 09/17/18 Surgeon: Paul Hutson Artificial Flowers Dyer: kristie Anesthesiologist: dagoberto Anesthesia: GET(General Endotracheal) Pre-op Diagnosis: left septic tka Post-op Diagnosis: same Indication: same Procedure: left knee i and d and removal of prosthesis Inf/Abcess present in the surg proc area at time of surgery?: Yes Depth: Deep Incisional (Fascial) EBL: 100-500
[2018-09-17] MEDS ORDERED: LABETALOL HCL 5 MG/ML 20 ML MDV IVP ONE (17:27)
[2018-09-17] MEDS ORDERED: hydrALAZINE 20 MG/ML VIAL IVP PRN (17:28)
[2018-09-17] MEDS ORDERED: LR 1,000 ML IV SCH (17:30)
[2018-09-17] MEDS ORDERED: NON-FORMULARY NEW DRUG (Ranitidine Hcl [Zantac] 150 MG) PO PRN (17:32)
[2018-09-17] MEDS ORDERED: LABETALOL HCL 5 MG/ML 20 ML MDV ONE (18:22)
--- NOTE | 2018-09-17 18:41 | GCON ---
[f rep st] CONSULTATION DATE OF CONSULTATION: 09/17/2018 HISTORY OF PRESENT ILLNESS: The patient is a pleasant 68-year-old female with history of total knee arthroplasty last summer in December, who presents today for elective revision due to infection. When I speak with her, she is in the PACU and a little bit sedated but able to say she has had some i ncreasing pain in her leg, but no drainage. No fever, chills, or sepsis-like symptoms. She does not have diabetes. REVIEW OF SYSTEMS: Complete 10-point review of systems conducted and negative except as noted in the HPI. PAST MEDICAL HISTORY: Anxiety, arthritis, atrophic vaginitis, hypertension, hemochromatosis, eye catrina amor. ALLERGIES: No known drug allergies. HOME MEDICATIONS: Tylenol, vitamin D3, cyanocobalamin, ferrous sulfate, fluticasone, ibuprofen, bupr opion, [place], ranitidine, sertraline. SOCIAL HISTORY: Lives in [place]. No tobacco. Occasional alcohol. FAMILY HISTORY: Reviewed and unremarkable. PHYSICAL EXAMINATION: VITAL SIGNS: Afebrile at 36.9, pulse in the low 100s. Blood pressure 172/80. Respiratory rate 19, 95% on a couple L. GENERAL: No acute distress. Sedated. HEENT: Sclerae an icteric. Oropharynx clear. Mucous membranes moist. NECK: Supple. No lymphadenopathy or JVD. JULIO CESAR GS: Clear to auscultation bilaterally. HEART: S1, S2. ABDOMEN: Soft, nontender, nondistended. E XTREMITIES: Left lower extremity is in a knee brace and is neurovascularly intact. NEUROLOGIC: Non focal. Patient is sedated. DIAGNOSTIC DATA: Recent labs included a CBC with slightly high platelets, but otherwise normal. She has a history of normal kidney function. Arthrocentesis done about a week ago shows 48,000 white cells suggestive of infection. The knee aspi rate grew out Staph lugdunensis. Other micro on that is pending. This is a largely pansensitive sta ph, including sensitivity to cefazolin. I have discussed the case with Dr. Amandeep Hutson. ASSESSMENT AND PLAN: A 68-year-old female with infected knee arthroplasty, status post explantation of hardware. 1. Knee infection. She is status post explantation. She has been started on cefazolin which is elsy ropriate therapy given the available micro. I would imagine infectious disease consult service will be seeing her. Continue cefazolin as is. 2. Hypertension. Continue her medicines once they have been reconciled. 3. Thrombocytosis. The patient recently had a CBC with elevated platelets which is consistent with infection. No specific therapy will be indicated. 4. Prophylaxis. Recommend low-molecular heparin venous thromboembolism prophylaxis. 5. Tachycardia. This is postop tachycardia. Will follow. 6. Depression. Continue her bupropion. Thank you for this consultation. [facility] will follow. /[id number]/MODL
[2018-09-17] MEDS: CYCLOBENZAPRINE 10 MG TAB PO PRN (20:47)
[2018-09-17] MEDS: FAMOTIDINE 20 MG TAB PO SCH (20:48)
[2018-09-17] MEDS: SENNOSIDES/DOCUSATE SODIUM TAB PO SCH (20:48)
[2018-09-17] MEDS: ACETAMINOPHEN 325 MG TAB PO SCH (23:09)
[2018-09-17] MEDS: ceFAZolin 2 GM/DEXTROSE 100 ML IV SCH (23:09)
[2018-09-17] MEDS: TRANEXAMIC ACID 650 MG TAB PO SCH (23:09)
--- NOTE | 2018-09-18 05:02 | PDMN ---
Medical Necessity Medical necessity: [facility] IP only surgery; cpt 25851 Removal of Prosthesis 60031 L Knee I&D
[2018-09-18] MEDS: CYCLOBENZAPRINE 10 MG TAB PO PRN (05:08)
[2018-09-18] MEDS: ACETAMINOPHEN 325 MG TAB PO SCH ×4 (05:08→23:33)
[2018-09-18] MEDS: TRANEXAMIC ACID 650 MG TAB PO SCH ×2 (05:08→15:09)
--- NOTE | 2018-09-18 07:02 | GOP ---
[f rep st] OPERATIVE REPORT DATE OF OPERATION: 09/17/2018 SURGEON: Paul Hutson MD INVESTIGATIVE ASSISTANT: None. 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 POSTOPERATIVE DIAGNOSIS: Failed left total knee arthroplasty. PROCEDURE PERFORMED: Irrigation and debridement with hardware removal of left infected total knee ar throplasty. FINDINGS: SPECIMENS: To pathology, fluid and soft tissue elements as above. INDICATIONS: The patient is a 68-year-old woman who is known to me. She is 8 months out following l eft total knee replacement. Over the last month, she has noticed increasing swelling, pain, discomfo rt, and redness across her knee. Aspiration of her knee revealed elevated white count and no initial organisms. Cultures ultimately returned with a staphylococcus bacteria; I therefore set up for irri gation and debridement and removal of the components. I have outlined the surgical procedure, risks, benefits, and alternatives. She wished to proceed. Appropriate consent will be signed and placed i n the patient's chart. DESCRIPTION OF PROCEDURE: The patient was identified in the preanesthesia area. The left knee clear ly demarcated as the operative site with indelible marker. She was given no preoperative antibiotics in the OR. A general endotracheal anesthesia was administered. Attention was turned to the left kn ee, which was sterilely prepped and draped in the usual fashion. A tourniquet was applied to the upp er thigh. The limb was sterilely prepped and draped in the usual fashion. Appropriate time-out proc edure was carried out. The limb was exsanguinated by gravity drainage only and the tourniquet inflat ed to 275 mmHg. Previous incision was opened in its entirety, carried sharply through the skin and s ubcutaneous tissue. Subcutaneous tissue demonstrated no violation of the inner capsule. The tissue was intact. There was no evidence of gross purulence. Once the medial parapatellar arthrotomy was o pened, there was a gross cloudy fluid. This was sent for Gram stain, culture, and analysis. There w as additional fibrofatty discharge throughout the suprapatellar pouch. This was debrided in entirety . Subperiosteal elevation was carried out to the mid coronal plane. All remaining Ethibond suture f ragments were withdrawn. Retractors were placed allowing visualization of the knee. There was no gr oss instability of the components. The polyethylene spacer was removed with a quarter-inch osteotome . Attention was first turned to the femur. Using a flexible osteotome, careful separation of the me adrian bone interface was achieved and the femoral component was removed. There was minimal bony ingrow th across the femoral component. The tibia was then likewise delivered with the use of a posterior r etractor. Using an osteotome and a saw, the proximal surface was then freed and removed from the pro ximal tibia. There was bony ingrowth into the tibial component. The patella was then everted. Care ful dissection at the metal bone interface was carried out, and the patella was withdrawn. There was full bony ingrowth across the patellar component. The surfaces were then serially debrided from the skin and subcutaneous tissue to the bone with a rongeur and curette. Copious irrigation with pulsat ile lavage was carried out. Two batches of cement were then mixed with tobramycin, and a pre-formed cement knee spacer size medium on the tibia and size medium on the femur were then loosely cemented t o the femur and the tibia. The knee was held in full extension during this cementation. All margina l cement was withdrawn. The tissues were injected with a joint cocktail of Toradol and epinephrine, no morphine. The medial parapatellar arthrotomy was closed using 0 PDS, the subcutaneous tissue clos ed using 2-0 Monocryl, and the skin was stapled. Sterile dressing with ABDs and a knee immobilizer w as placed over an Robbin wrap, locked in extension. The patient was awakened and taken to the recovery room in good, stable condition. TOTAL TOURNIQUET TIME: 71 minutes. COMPLICATIONS: None. DISPOSITION: To the recovery room, then the floor. She will be touchdown weightbearing. Remain loc ked in extension. She will continue on Lovenox for a minimum of 2 weeks, and likely 6 weeks given th e high risk for blood clot. Infectious Disease has been consulted, and she will continue on IV antib iotics for 6 weeks. /[id number]/MODL
[2018-09-18] MEDS: oxyCODONE IR 5 MG TAB PO PRN ×2 (07:53→19:25)
[2018-09-18] MEDS: buPROPion XL 150 MG TAB PO SCH (07:55)
[2018-09-18] MEDS: ceFAZolin 2 GM/DEXTROSE 100 ML IV SCH ×3 (07:55→21:47)
[2018-09-18] MEDS: SERTRALINE HCL 50 MG TAB PO SCH (07:56)
[2018-09-18] MEDS: FAMOTIDINE 20 MG TAB PO SCH ×2 (07:56→20:27)
[2018-09-18] MEDS: SENNOSIDES/DOCUSATE SODIUM TAB PO SCH ×2 (07:56→20:25)
[2018-09-18] MEDS: ENOXAPARIN 30 MG/0.3 ML SYR SC SCH ×2 (08:00→20:27)
--- NOTE | 2018-09-18 09:36 | HOSPPROG ---
Hospitalist Progress Note Assessment/Plan: Marylin is a 68 y/o female w hx of TKA last summer who presented with an elective revision due to infection. First encounter, chart reviewed. * Knee infection -s/p explantation -Cefazolin -knee aspirate grew out staph lugdunensis -ID to see *HTN -bp stable this morning *thrombocytosis -from infection *tachycardia -resolved *depression -Zoloft and Wellbutrin *dvt prophylaxis: LMWH *plan: reviewed her care w Dr Hutson, hospitalist will take over being primary; she is to be NWB, no ROM with left knee, 2 weeks of Lovenox on dc, dressing to be changed prior to discharge. Subjective: Marylin is feeling fine, not having pain. Objective: Vital Signs Temp Pulse Resp BP Pulse Ox 36.5 C 72 16 129/63 H 91 L 09/18/18 07:42 09/18/18 07:42 09/18/18 07:42 09/18/18 07:42 09/18/18 07:42 Microbiology 09/17/18 16:07 Gram Stain - Final Knee - Tissue 09/17/18 15:58 Gram Stain - Final Knee - Aspirate Laboratory Results 09/18/18 04:42 09/17/18 09/18/18 09/19/18 05:59 05:59 05:59 Intake Total 975 Balance 975 - Physical Exam Constitutional: no apparent distress, appears nourished Eyes: PERRL Ears, Nose, Mouth, Throat: hearing normal Cardiovascular: regular rate and rhythym Respiratory: no respiratory distress Gastrointestinal: normoactive bowel sounds Skin: warm, other (left leg in brace) Musculoskeletal: generalized weakness Neurologic: AAOx3 Psychiatric: interacting appropriately ICD10 Worksheet Patient Problems: Problems Problem Status Onset Arthritis of knee Acute
--- NOTE | 2018-09-18 11:24 | SOAPPROG ---
SOAP Progress Note Assessment/Plan: Assessment: s/p tka removal for infection Plan:d/c home or snf when ready lovenox for 2 weeks tdwb no rom use brace at all times 09/18/18 11:23 Subjective: no complaints currently no cp or sob fara po Objective: Vital Signs Temp Pulse Resp BP Pulse Ox 36.5 C 72 16 129/63 H 91 L 09/18/18 07:42 09/18/18 07:42 09/18/18 07:42 09/18/18 07:42 09/18/18 07:42 Microbiology 09/17/18 16:07 Gram Stain - Final Knee - Tissue 09/17/18 15:58 Gram Stain - Final Knee - Aspirate Laboratory Results 09/18/18 04:42 09/17/18 09/18/18 09/19/18 05:59 05:59 05:59 Intake Total 975 Balance 975 dressing intact intact pf,df,ehl toes warm and pink neg homans trey xrays stable alignement ICD10 Worksheet Patient Problems: Problems Problem Status Onset Arthritis of knee Acute
[2018-09-18] MEDS ORDERED: ALTEPLASE 2 MG VIAL IVP PRN (13:27)
--- NOTE | 2018-09-18 14:46 | ASMTCMCOM ---
CM Note CM Note Notes: Pt had planned knee surgery. Pt wanted SNF coming in to [facility], when this CM went to discuss SNF options pt reports she changed her mind and wants to follow [facility] which is home with [facility]. While pt resides alone, pt has arranged friend and family to stay with her in her recovery. Pt chooses [facility], Rub[place] alerted. D/c plan of care: Home with [facility] PT Date Signed: 09/18/2018 02:46 PM Electronically Signed By:KYUNG Kennedy
[2018-09-18] MEDS: METHOCARBAMOL 750 MG TAB PO PRN (17:22)
--- NOTE | 2018-09-18 18:20 | PDIAF ---
- Diagnosis Diagnosis: left failed tka Code Status: Full Code - Medication Management Captain'S Assistant Antibiotics: cefazolin 6gm IV q24 hours via continuous infusion OR cefazolin 2gm IV q8 h Intermediate Antibiotic Stop Date: 10/30/18 Discharge Medications: electronically signed and located in the Home Medication List. PICC Care - Routine: Yes - Orders Services needed: Home Care, Physical Therapy Home Care Face to Face: I certify that this patient was under my care and that I had the required salx-uo-tsme encounter meeting the encounter requirements on the discharge day. My findings support the fact that the patient is homebound as defined in Home Care Face to Face Continued: CMS Chapter 7 Medicare Benefits Manual 30.1.1 , The condition of the patient is such that there exists a normal inability to leave home and consequently, leaving home would require a considerable and taxing effort. Diet Recommendation: no restrictions on diet Diet Texture: Regular Texture Diet Additional Instructions: tdwb with leg locked in straight leg immobilizer no rom keep clean, dry and intact f/u at two weeks - Labs/Radiology BMP Date: 09/29/18 (Weekly while on cefazolin) CBC w/diff Date: 09/29/18 (Weekly while on cefazolin) CRP Date: 09/29/18 (Weekly while on cefazolin) Call or Fax Lab and Imaging Results to: - Follow Up Care Current Providers and Referrals: Paul Hutson MD [Primary Care Provider] - Filiberto Angulo MD [Medical Doctor] - follow up as scheduled
--- NOTE | 2018-09-18 18:31 | PDCONSULT ---
Senior Game Designer Note: Infectious Diseases Consult Note Impression: 68-year-old woman with infected left total knee joint replacement status post stage I removal on 09/17/2018, infected with Staphylococcus lugdunensis. She will get started on cefazolin 2 g q.8 or 6 g Q 24 hr with labs to be done tomorrow. 1. Left total knee joint replacement infection with Staphylococcus lugdunensis 2. Status post left total knee stage I removal 09/17/2018 Plan: 1. Cefazolin 2 g q.8 hours while inpatient 2. She will discharged on cefazolin 2 g q.8 hours or cefazolin 6 g Q 24 hr by continuous infusion; plan will be 6 weeks of IV therapy 3. ID follow-up will be 2-3 weeks from discharge and again at approximately 5 weeks from her index procedure 4. Reviewed in detail potential side effects of beta-lactam antibiotics to include: allergy, rash, nausea, antibiotic-associated diarrhea, Clostridioides difficile colitis. Filiberto Angulo MD Infectious Diseases Chief Complaint: Left prosthetic knee joint infection Requesting Provider: Dr. Hutson Reason for Referral: Consultation was requested by Dr. Hutson regarding antimicrobial management. HPI: 68-year-old woman who was admitted to undergo 1st of a planned 2 stage procedure for an infected left total knee joint. Her index procedure was in December of 2017. She initially did well postoperatively with prompt healing of her incision and graded progression of her ability to ambulate with minimal discomfort. Approximately 4 months after the index procedure she developed severe swelling of the left knee and distal left leg which persisted into August of 2018. Initially thought to be hematoma, she underwent knee joint aspiration on 09/10/2018 which grew Staphylococcus lugdunensis. Approximately 3 weeks prior to admission she started having periodic fevers and chills throughout the day with increasing edema of the left knee associated with circumferential erythema and worsening pain to the point that she was having difficulty ambulating. She underwent surgical removal of the left total knee and she has been recovering well in hospital since her procedure. She notes no difficulties with cefazolin doses that she is received thus far. Chronology of Present Illness: Location of symptoms: Left knee Onset of symptoms: Approximately 4 months after index procedure (May 2018) ; worsening of symptoms starting approximately 3 weeks prior to admission Initial signs/symptoms: Initial change noted 4 months prior to admission with increased swelling of the left knee and pain, 3 weeks prior to admission she noticed fevers and chills intermittently throughout the days, general fatigue, persistent swelling and erythema of the left knee Associated signs/symptoms at onset: Periodic fevers and chills Changes since onset: Left knee erythema and edema progressed to the point of causing severe pain limiting her ability to ambulate Exacerbating factors: Exertion Relieving factors: Ibuprofen Antibiotics since symptom onset: Cefazolin since admission Change in symptoms with antibiotics: No clear change as she underwent surgical debridement Reviewed patient medical records in [facility], and [facility] ([facility]). Past Medical History: Osteoarthritis Past Surgical History: Left knee total joint replacement 01/06/2018; stage I removal of left knee total joint replacement 09/17/18 Social History: Does not use tobacco products; Does not consume marijuana products currently; Drinks alcohol socially; Does not use any other drugs currently or in the past Family History: No family members with recurrent infections Allergies: NKDA Medications: Reviewed in medical record and confirmed with patient. ROS: 10 organ systems reviewed; pertinent positives and negatives listed in the HPI, all other organ systems negative. Physical Exam: VS: Reviewed Gen: No acute distress; Breathing comfortably without supplemental oxygen; Able to speak in complete sentences Eyes: No conjunctival injection; No scleral icterus HENT: No gross deformities Neck: No limitation in range of motion Pulm: Audible inspiratory sounds to the bases bilaterally; No wheeze, rhonchi, or rales CV: Normal S1 and S2; Regular rate and rhythm; No murmurs, rubs, or gallops; No lower extremity edema Abd: Not distended; Normo-active bowel sounds; Soft; Non-tender Skin: A full skin exam including exposed bilateral upper extremities, bilateral lower extremities to the knees, face, neck, abdomen, chest, and back performed; Skin intact, warm, with no rash MSK: Left leg in postoperative dressing not taken down Ext: No clubbing or cyanosis Neuro: Awake and alert Psych: Normal mood and affect Labs/Imaging: All microbiology testing (culture and non-culture) reviewed in the medical record. Personally reviewed and interpreted the images of the following radiographs: Medications Generic Name Dose Route Start Last Admin Trade Name Freq PRN Reason Stop Dose Admin Cefazolin Sodium/Dextrose 100 mls @ 200 mls/hr 09/18/18 14:00 09/18/18 15:09 Ancef IV 10/18/18 13:59 100 mls Q8HRS [facility] Protocol Discontinued Medications Generic Name Dose Route Start Last Admin Trade Name Juan Antonio PRN Reason Stop Dose Admin Cefazolin Sodium/Dextrose 100 mls @ 200 mls/hr 09/18/18 00:00 09/18/18 07:55 Ancef IV 09/18/18 08:29 100 mls Q8H [facility] Protocol Microbiology 09/17/18 16:07 Knee - Tissue Mycobacterial Smear (WILL) - Final 09/17/18 16:07 Knee - Tissue Gram Stain - Final 09/17/18 15:58 Knee - Aspirate Mycobacterial Smear (WILL) - Final 09/17/18 15:58 Knee - Aspirate Gram Stain - Final 09/10/18 08:32 Knee - Aspirate Gram Stain - Final 09/10/18 08:32 Knee - Aspirate Body Fluid Culture - Final 09/17/18 16:07 Knee - Tissue Anaerobic Culture - Preliminary 09/17/18 15:58 Knee - Aspirate Anaerobic Culture - Preliminary 09/10/18 08:32 Knee - Aspirate Anaerobic Culture - Preliminary Staphylococcus Lugdunensis Laboratory Tests 09/18/18 04:42 Hgb 11.2 L Hct 34.1 L Ongoing monitoring for antimicrobial toxicity with: CBC, BMP.
[2018-09-18] MEDS ORDERED: CYCLOBENZAPRINE 10 MG TAB PO ONE (20:23)
[2018-09-19] MEDS: ACETAMINOPHEN 325 MG TAB PO SCH ×2 (05:45→10:05)
[2018-09-19] MEDS: HYDROCODONE/APAP 10/325 TAB PO PRN ×3 (05:46→14:16)
[2018-09-19] MEDS: ceFAZolin 2 GM/DEXTROSE 100 ML IV SCH ×2 (05:47→13:02)
[2018-09-19 06:05] LABS: PLATELET COUNT 405 10^3/uL (150-400)
[2018-09-19] MEDS: METHOCARBAMOL 750 MG TAB PO PRN (06:26)
--- NOTE | 2018-09-19 07:10 | SOAPPROG ---
SOAP Progress Note Assessment/Plan: Assessment: 2 day s/p L TKA revision secondary to infection. Doing well and pain controlled today. Plan: Cont pain meds as directed Home PT/OT to house TDWB Lovenox x 2 wks F/u in clinic in 2 weeks at [facility] ortho 09/19/18 07:07 Subjective: 2 days s/p L TKA revision. States she is doing well. Having leg spasms at night , but is pain controlled. Denies calf pain, SOB, CP, numbness, tingling, fever, chills, nausea or vomiting. Objective: Vital Signs Temp Pulse Resp BP Pulse Ox 36.7 C 72 14 138/74 H 93 09/18/18 23:01 09/18/18 23:01 09/18/18 23:01 09/18/18 23:01 09/18/18 23:01 Microbiology 09/17/18 15:58 Gram Stain - Final Knee - Aspirate 09/17/18 16:07 Gram Stain - Final Knee - Tissue 09/17/18 15:58 Mycobacterial Smear (WILL) - Final Knee - Aspirate 09/17/18 16:07 Mycobacterial Smear (WILL) - Final Knee - Tissue Laboratory Results 09/19/18 05:50 09/19/18 05:50 09/18/18 09/19/18 09/20/18 05:59 05:59 05:59 Intake Total 975 730 Output Total 800 Balance 975 -70 Physical Exam - Physical Exam General Appearance: WD/WN, alert, no apparent distress Peripheral Pulses: 1+: dorsalis-pedis (R), dorsalis-pedis (L) Skin: normal color, warm/dry, No rash Extremities: normal inspection, normal capillary refill, swelling, No normal range of motion, No non-tender, No pedal edema, No calf tenderness, No Thalia's sign Neuro/Psych: no motor/sensory deficits, alert, normal mood/affect, oriented x 3 ICD10 Worksheet Patient Problems: Problems Problem Status Onset Arthritis of knee Acute
[2018-09-19 07:52] VITALS: BP 144/76
[2018-09-19] MEDS ORDERED: POTASSIUM CL 20 MEQ TAB PO ONE (07:55)
[2018-09-19] MEDS: SENNOSIDES/DOCUSATE SODIUM TAB PO SCH (08:36)
[2018-09-19] MEDS: SERTRALINE HCL 50 MG TAB PO SCH (08:36)
[2018-09-19] MEDS: FAMOTIDINE 20 MG TAB PO SCH (08:36)
[2018-09-19] MEDS: buPROPion XL 150 MG TAB PO SCH (08:36)
--- NOTE | 2018-09-19 09:00 | HOSPPROG ---
Hospitalist Progress Note Assessment/Plan: Marylin is a 68 y/o female w hx of TKA last summer who presented with an elective revision due to infection. * Knee infection -s/p explantation -Cefazolin -knee aspirate grew out staph lugdunensis *hypokalemia -oral K given -has hx of this *HTN -bp stable this morning *thrombocytosis -from infection *tachycardia -resolved *depression -Zoloft and Wellbutrin *dvt prophylaxis: LMWH *plan:dc home today w home care Subjective: Marylin is feeling fine, mainly concerned about having leg spasms Objective: Vital Signs Temp Pulse Resp BP Pulse Ox 36.9 C 79 16 144/76 H 92 09/19/18 07:50 09/19/18 07:50 09/19/18 07:50 09/19/18 07:50 09/19/18 07:50 Microbiology 09/17/18 15:58 Gram Stain - Final Knee - Aspirate 09/17/18 16:07 Gram Stain - Final Knee - Tissue 09/17/18 15:58 Mycobacterial Smear (WILL) - Final Knee - Aspirate 09/17/18 16:07 Mycobacterial Smear (WILL) - Final Knee - Tissue Laboratory Results 09/19/18 05:50 09/19/18 05:50 09/18/18 09/19/18 09/20/18 05:59 05:59 05:59 Intake Total 975 730 Output Total 800 Balance 975 -70 - Physical Exam Constitutional: no apparent distress, appears nourished, not in pain Eyes: PERRL Ears, Nose, Mouth, Throat: hearing normal Respiratory: no respiratory distress Skin: warm, other (left leg in splint) Neurologic: AAOx3 Psychiatric: interacting appropriately ICD10 Worksheet Patient Problems: Problems Problem Status Onset Arthritis of knee Acute
--- NOTE | 2018-09-19 09:37 | PDIAF ---
- Diagnosis Diagnosis: left failed tka Code Status: Full Code - Medication Management It Security Architect Antibiotics: cefazolin 6gm IV q24 hours via continuous infusion OR cefazolin 2gm IV q8 h It Security Architect Antibiotic Stop Date: 10/30/18 Discharge Medications: electronically signed and located in the Home Medication List. PICC Care - Routine: Yes - Orders Services needed: Home Care, Registered Nurse, Physical Therapy, Occupational Therapy Home Care Face to Face: I certify that this patient was under my care and that I had the required [id number] encounter meeting the encounter requirements on the discharge day. My findings support the fact that the patient is homebound as defined in Home Care Face to Face Continued: CMS Chapter 7 Medicare Benefits Manual 30.1.1 , The condition of the patient is such that there exists a normal inability to leave home and consequently, leaving home would require a considerable and taxing effort. Diet Recommendation: no restrictions on diet Diet Texture: Regular Texture Diet Additional Instructions: tdwb with leg locked in straight leg immobilizer no rom keep clean, dry and intact f/u at two weeks - Labs/Radiology BMP Date: 09/29/18 (Weekly while on cefazolin) CBC w/diff Date: 09/29/18 (Weekly while on cefazolin) CRP Date: 09/29/18 (Weekly while on cefazolin) Call or Fax Lab and Imaging Results to: - Follow Up Care Current Providers and Referrals: Filiberto Angulo MD [Medical Doctor] - follow up as scheduled Paul Hutson MD [Primary Care Provider] -
--- NOTE | 2018-09-19 10:16 | PDIAF ---
- Diagnosis Diagnosis: left failed tka Code Status: Full Code - Medication Management [employer] Antibiotics: cefazolin 6gm IV q24 hours via continuous infusion OR cefazolin 2gm IV q8 h [employer] Antibiotic Stop Date: 10/30/18 Discharge Medications: electronically signed and located in the Home Medication List. PICC Care - Routine: Yes - Orders Services needed: Home Care, Registered Nurse, Physical Therapy, Occupational Therapy Home Care Face to Face: I certify that this patient was under my care and that I had the required [id number] encounter meeting the encounter requirements on the discharge day. My findings support the fact that the patient is homebound as defined in Home Care Face to Face Continued: CMS Chapter 7 Medicare Benefits Manual 30.1.1 , The condition of the patient is such that there exists a normal inability to leave home and consequently, leaving home would require a considerable and taxing effort. Diet Recommendation: no restrictions on diet Diet Texture: Regular Texture Diet Additional Instructions: tdwb with leg locked in straight leg immobilizer no rom keep clean, dry and intact f/u at two weeks - Labs/Radiology BMP Date: 09/29/18 (Weekly while on cefazolin) CBC w/diff Date: 09/29/18 (Weekly while on cefazolin) CRP Date: 09/29/18 (Weekly while on cefazolin) Call or Fax Lab and Imaging Results to: - Follow Up Care Current Providers and Referrals: Paul Hutson MD [Primary Care Provider] - Filiberto Angulo MD [Medical Doctor] - 10/03/18 2:00 pm
[2018-09-19] MEDS: ENOXAPARIN 30 MG/0.3 ML SYR SC SCH (10:21)
--- NOTE | 2018-09-19 10:49 | ASMTCMCOM ---
CM Note CM Note Notes: D/W HOSPICE CHAPLAIN and RN, patient is ready to d/c today. Medical decision has been made to d/c home with IV abx d/t high risk infection. Referral/final orders sent to [facility], able to accept this evening - benefits have been discussed with patient and she is in agreement. [facility] alerted of d/c - [facility] and [facility] will coordinate infusion administration time. Patient states she will have friends/family staying with her 21/01 at least until Saturday. Address, phone # have been confirmed. Patient has been given resources to obtain walker - friend will transport home today. Plan: HARVINDER Martinez RN, PT, OT Date Signed: 09/19/2018 10:48 AM Electronically Signed By:Beatriz Ye RN
--- NOTE | 2018-09-19 12:02 | PCMIDPN ---
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 Overall she is progressing as expected and tolerating cefazolin just fine. Will plan to continue this therapy through 6 weeks. 1. 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 Status post left total knee stage I removal 09/17/2018 Plan: 1. Continue cefazolin 2 g q.8 hours while inpatient 2. Discharged on cefazolin 2 g q.8 hours or cefazolin 6 g Q 24 hr by continuous infusion; plan will be 6 weeks of IV therapy 3. ID follow-up arranged 4. Reviewed in detail potential side effects of beta-lactam antibiotics to include: allergy, rash, nausea, antibiotic-associated diarrhea, Clostridioides difficile colitis. Filiberto Angulo MD Infectious Diseases 09/19/18 12:00 Subjective: No fever or chills in the past 24-hours. Tolerating oral diet with solids and liquids. No diarrhea, nausea, or other GI symptoms. No rash. Appetite normal. Tolerating cefazolin without discernible side effect. Objective: Vital Signs Temp Pulse Resp BP Pulse Ox 36.9 C 79 16 144/76 H 92 09/19/18 07:50 09/19/18 07:50 09/19/18 07:50 09/19/18 07:50 09/19/18 07:50 Microbiology 09/17/18 15:58 Gram Stain - Final Knee - Aspirate 09/17/18 16:07 Gram Stain - Final Knee - Tissue 09/17/18 15:58 Mycobacterial Smear (WILL) - Final Knee - Aspirate 09/17/18 16:07 Mycobacterial Smear (WILL) - Final Knee - Tissue Laboratory Results 09/19/18 05:50 09/19/18 05:50 09/18/18 09/19/18 09/20/18 05:59 05:59 05:59 Intake Total 975 730 Output Total 800 Balance 975 -70 C-Reactive Protein 58.1 mg/L (<10.0) H 09/19/18 05:50 Medications Generic Name Dose Route Start Last Admin Trade Name Freq PRN Reason Stop Dose Admin Cefazolin Sodium/Dextrose 100 mls @ 200 mls/hr 09/18/18 14:00 09/19/18 05:47 Ancef IV 10/18/18 13:59 100 mls Q8HRS JONI Protocol Microbiology 09/17/18 16:07 Knee - Tissue Mycobacterial Smear (WILL) - Final 09/17/18 16:07 Knee - Tissue Gram Stain - Final 09/17/18 15:58 Knee - Aspirate Mycobacterial Smear (WILL) - Final 09/17/18 15:58 Knee - Aspirate Gram Stain - Final 09/10/18 08:32 Knee - Aspirate Gram Stain - Final 09/10/18 08:32 Knee - Aspirate Body Fluid Culture - Final 09/17/18 16:07 Knee - Tissue Fungal Culture - Preliminary 09/17/18 16:07 Knee - Tissue Anaerobic Culture - Preliminary 09/17/18 15:58 Knee - Aspirate Fungal Culture - Preliminary 09/17/18 15:58 Knee - Aspirate Anaerobic Culture - Preliminary 09/10/18 08:32 Knee - Aspirate Anaerobic Culture - Preliminary Staphylococcus Lugdunensis Laboratory Tests 09/19/18 05:50 WBC 5.64 Hgb 10.8 L Plt Count 405 H - Physical Exam General Appearance: no apparent distress, non-toxic EENT: No scleral icterus Respiratory: No respiratory distress, No accessory muscle use Neck: full range of motion, supple Skin: No erythema Neuro/Psych: alert, normal mood/affect, oriented x 3, No confused ICD10 Worksheet Patient Problems: Problems Problem Status Onset Arthritis of knee Acute
--- NOTE | 2018-09-19 15:17 | ASDISCHSUM ---
Discharge Information Plan Status:Home with Home Health Medically Cleared to Leave: Discharge Date:09/19/2018 02:29 PM D/C Disposition:Home Health Service ADT D/C Disposition:Home, Routine, Self-Care Projected Discharge Date:09/19/2018 11:00 AM Transportation at D/C: Discharge Delay Reason: Follow-Up Date:09/19/2018 11:00 AM Discharge Slot: Final Diagnosis: Placement Information Referral Type:*Home Health Care Services Referral ID:[id number] Provider Name:[facility] Address 1:[address] Address 2: City:[place] Selection Factors: State:[place] Referral Type:Home Infusion Referral ID:[id number] Provider Name:[facility] Address 1:[address] Address 2: City:[place] Selection Factors: State:[place] Patient Contact Information Contact Name:JESSICA Relationship:Brother Address: Work Phone: City: [facility] Phone: [facility]/Zip Code: Email: Financial Information Financial Class:Medicare Primary Plan Desc:MEDICARE INPATIENT Primary Plan Number:[id number] Secondary Plan Desc:WILIAN/CATHLEEN SUPPLEMENT Secondary Plan Number:[id number] Assessment Information [facility] CM Progress Note CM Note CM Note Notes: Pt had planned knee surgery. Pt wanted SNF coming in to [facility], when this went to discuss SNF options pt reports she changed her mind and wants to follow [facility] which is home with [facility]. While pt resides alone, pt has arranged friend and family to stay with her in her recovery. Pt chooses [facility], [place]. D/c plan of care: Home with [facility] PT Date Signed: 09/18/2018 02:46 PM Electronically Signed By:KYUNG Kennedy [facility] CM Progress Note CM Note CM Note Notes: D/W FOOD SERVICE ORDER CLERK and RN, patient is ready to d/c today. Medical decision has been made to d/c home with IV abx d/t high risk infection. Referral/final orders sent to [facility], able to accept this evening - benefits have been discussed with patient and she is in agreement. [facility] alerted of d/c - Michelle and [facility] will coordinate infusion administration time. Patient states she will have friends/family staying with her 21/01 at least until Saturday. Address, phone # have been confirmed. Patient has been given resources to obtain walker - friend will transport home today. Plan: HARVINDER Martinez RN, PT, OT Date Signed: 09/19/2018 10:48 AM Electronically Signed By:Beatriz Ye RN Intervention Information
== END 2018-09-19 14:29 | disposition home health service (06) | DRG 465 ==
LOC: F3N 12:46
PROVIDERS: ADMIT Orthopaedic Surgery; ATTEND Orthopaedic Surgery
PROC: 0SPD0JZ Removal of Synthetic Substitute from Left Knee Joint, Open Approach (ICD-10-PCS; principal; 2018-09-17 14:45)
PROC: 0SHD08Z Insertion of Spacer into Left Knee Joint, Open Approach (ICD-10-PCS; principal; 2018-09-17 14:45)
PROC: 02HV33Z Insertion of Infusion Device into Superior Vena Cava, Percutaneous Approach (ICD-10-PCS; 2018-09-18)
DX: T84.54XA Infection and inflammatory reaction due to internal left knee prosthesis, initial encounter (principal); B95.7 Other staphylococcus as the cause of diseases classified elsewhere; E87.6 Hypokalemia; F41.9 Anxiety disorder, unspecified; F32.9 Major depressive disorder, single episode, unspecified; I10 Essential (primary) hypertension
CPT/HCPCS: 97116-GP; 97161-GP; 97166-GO; 97530-GP; 97535-GO; C1713; C1751; J0171; J0360; J0690; J1100; J1170; J1650; J1885; J2250; J2270; J2405; J2704; J2795; J3010; J3370; L1832

== ENCOUNTER 2018-11-27 08:16 | Inpatient (IN) | payer OTHER, MEDICARE ==
--- NOTE | 2018-11-27 11:46 | PDIAF ---
- Diagnosis Diagnosis: left knee revision Code Status: Full Code - Medication Management Discharge Medications: electronically signed and located in the Home Medication List. - Orders Services needed: Home Care, Physical Therapy Home Care Face to Face: I certify that this patient was under my care and that I had the required [id number] encounter meeting the encounter requirements on the discharge day. My findings support the fact that the patient is homebound as defined in Home Care Face to Face Continued: CMS Chapter 7 Medicare Benefits Manual 30.1.1 , The condition of the patient is such that there exists a normal inability to leave home and consequently, leaving home would require a considerable and taxing effort. Diet Recommendation: no restrictions on diet Diet Texture: Regular Texture Diet Additional Instructions: TOTAL JOINT ARTHROPLASTY DISCHARGE INSTRUCTIONS 1. Your surgeon follows the [facility] protocol for reducing your risk of DVT (blood clots) following surgery. Medication will be ordered to prevent blood clots. A sudden increase in calf pain and/or swelling could indicate a blood clot in your leg. If this occurs, please call your surgeon or his/her assistant boys track coach. An ultrasound of the leg may be necessary to diagnose a blood clot. If you have conditions that make you a higher risk for blood clots, your surgeon may use more aggressive ways to prevent them. Notify your surgeon if you think you are a high risk for blood clots. 2. Wear your white surgical stockings (SKY hose) for 2 weeks. This decreases your swelling and may help prevent blood clots. It is ok to remove SKY hose at night time to give your legs a break. 3. Swelling and bruising in the surgical leg is common. If you feel that it is excessive, please notify your surgeon. 4. Elevate your surgical leg with the ankle above the hip several times every day. Please keep the leg straight when you elevate by putting pillows under your foot. Do not put pillows under your knee. This will make being able to fully straighten more difficult. This is uncomfortable, but try to do it as much as possible. 5. For total knee replacements use compressive wrap on your knee for 3-5 days after surgery, then you can discontinue it. 6. Use a walker or crutches for 1-2 weeks. Progress your weight-bearing as tolerated. You may start to use a cane when you feel stable and safe. 7. You will receive physical therapy instructions in the hospital. Continue those exercises at home. There are additional exercises in the total joint booklet you were given before surgery. Outpatient physical therapy will begin 7- 10 days after surgery. Please schedule this in advance. 8. Use ice on your knee at least 3-5 times every day for 30 minutes. This helps reduce pain and swelling. Also use it at night before falling asleep. 9. Leave your surgical dressing in place for 2 weeks. Your dressing is water resistant, but not waterproof. Cover it with Saran Wrap or Ddyuq-q-Nxih before showering. You may shower as soon as you feel safe entering a shower. If you notice bleeding from your incision 2 or 3 days after surgery, please notify your surgeon. 10. Due to narcotics, decreased activity and altered diet, most patients experience constipation after surgery. Use vlbd-flo-yksgdni stool softeners while you are on narcotics. 11. You may drive a car when you are comfortable bearing weight, have good muscular control of your leg and are off narcotics. This usually occurs 2-4 weeks after surgery, depending on which leg was operated on. 12. If there are questions not addressed here, please refer the [facility] book given for more information. If you still have questions, please contact your surgeon s office. 13. If you have a life-threatening emergency, please call 911 and go to the emergency room immediately. For non-life threatening emergencies, please call your physicians office for advice before going to the emergency room. - Follow Up Care Current Providers and Referrals: Carli Harding PA [Primary Care Provider] - Paul Hutson MD [Medical Doctor] -
[2018-11-27] MEDS ORDERED: FAMOTIDINE 20 MG TAB PO ONE (12:42)
[2018-11-27] MEDS ORDERED: ceFAZolin 2 GM/DEXTROSE 100 ML IV ONE (12:42)
[2018-11-27] MEDS ORDERED: LR 1,000 ML IV ONE (12:42)
[2018-11-27] MEDS ORDERED: ACETAMINOPHEN 325 MG TAB PO ONE (12:42)
[2018-11-27] MEDS ORDERED: LIDOCAINE 1% 2 ML INJ ID PRN (12:42)
[2018-11-27] MEDS ORDERED: ceFAZolin 1 GM/5 ML SYR ONE (13:18)
[2018-11-27] MEDS ORDERED: BUPIVACAINE/EPI 0.5% 30 ML SDV ONE (13:19)
[2018-11-27] MEDS ORDERED: MIDAZOLAM 2 MG/2 ML VIAL ONE (13:32)
[2018-11-27] MEDS ORDERED: MIDAZOLAM 2 MG/2 ML VIAL IVP ONE (13:33)
--- NOTE | 2018-11-27 13:34 | PDANEPAE ---
ANE Past Medical History - Cardiovascular History Hx Hypertension: No Hx Arrhythmias: No Hx Chest Pain: No Hx Coronary Artery / Peripheral Vascular Disease: No Hx CHF / Valvular Disease: No Hx Palpitations: No - Pulmonary History Hx COPD: No Hx Asthma/Reactive Airway Disease: No Hx Recent Upper Respiratory Infection: No Hx Oxygen in Use at Home: No Hx Sleep Apnea: No Sleep Apnea Screening Result - Last Documented: Negative - Neurologic History Hx Cerebrovascular Accident: No Hx Seizures: No Hx Dementia: No - Endocrine History Hx Diabetes: No - Renal History Hx Renal Disorders: No - Liver History Hx Hepatic Disorders: No - Neurological & Psychiatric Hx Hx Neurological and Psychiatric Disorders: Yes Neurological / Psychiatric History Comment: anxiety - Cancer History Hx Cancer: No - Congenital Disorder History Hx Congenital Disorders: No - GI History Hx Gastrointestinal Disorders: Yes Gastrointestinal History Comment: reflux,gerd,diverticulitis. GERD controlled with meds and food related - Other Health History Other Health History: wears glasses. perm dental bridge. anemia - Chronic Pain History Chronic Pain: Yes (left knee) - Surgical History Prior Surgeries: 09/17/18 left knee I&D, removal of hardware and revision with Repine. 01/06/18 left TKA with Repine. arthroscopic L knee sx 12/15. hysterectomy 1999. cataract bilat ANE Review of Systems Review of Systems: - Exercise capacity METS (RN): 4 METS ANE Patient History - Allergies Allergies/Adverse Reactions: No Known Allergies Allergy (Verified 11/27/18 12:58) - Home Medications Home Medications: Acetaminophen [Tylenol 325mg (*)] 325 mg PO Q6 PRN 11/19/18 [Last Taken 11/23/18 ] Chlorthalidone [Chlorthalidone 25 mg (*)] 25 mg PO DAILY 11/19/18 [Last Taken ] Cholecalciferol Vit D3 [Vitamin D3 (*)] 1,000 units PO DAILY 11/19/18 [Last Taken 11/20/18] Cyanocobalamin [Vitamin B12 (*)] 1,000 mcg PO DAILY 11/19/18 [Last Taken ] Ferrous Sulfate [Ferrous Sulf 325 MG (*)] 325 mg PO DAILY 11/19/18 [Last Taken 11/20/18] Fluticasone Nasal [Flonase Nasal [place] (RX)] 1 sprays NASAL DAILY PRN 11/19/18 [ Last Taken 2 Weeks Ago ~11/13/18] Herbals/Supplements -Info Only 1 ea PO DAILY 11/19/18 [Last Taken 11/20/18] Sertraline HCl [Zoloft 50mg (*)] 50 mg PO HS 11/19/18 [Last Taken 11/27/18 06:00 ] Zolpidem Tartrate [Ambien 5MG (*)] 5 mg PO HS PRN 11/19/18 [Last Taken 11/26/18 22:00] buPROPion XL [Wellbutrin Xl] 300 mg PO DAILY 11/19/18 [Last Taken 11/26/18 22:00 ] - NPO status NPO Since - Liquids (Date): 11/27/18 NPO Since - Liquids (Time): 07:30 NPO Since - Solids (Date): 11/26/18 NPO Since - Solids (Time): 21:00 - Smoking Hx Smoking Status: Former smoker - Family Anes Hx Family Hx Anesthesia Complications: none ANE Labs/Vital Signs - Vital Signs Blood Pressure: 178/92 Heart Rate: 87 Respiratory Rate: 11 O2 Sat (%): 95 Height: 160.02 cm Weight: 69.853 kg ANE Physical Exam - Airway Neck exam: FROM Mallampati Score: Class 2 Mouth exam: normal dental/mouth exam - Pulmonary Pulmonary: no respiratory distress - Cardiovascular Cardiovascular: regular rate and rhythym - ASA Status ASA Status: II ANE Anesthesia Plan Anesthesia Plan: general endotracheal anesthesia
[2018-11-27] MEDS ORDERED: ROCURONIUM 100 MG/10 ML VIAL ONE (13:37)
[2018-11-27] MEDS ORDERED: DEXAMETHASONE 4 MG/ML VIAL ONE (13:37)
[2018-11-27] MEDS ORDERED: PROPOFOL 200 MG/20 ML VIAL ONE (13:37)
[2018-11-27] MEDS ORDERED: LIDOCAINE 2% 100 MG/5 ML SYR ONE (13:37)
[2018-11-27] MEDS ORDERED: ONDANSETRON 4 MG/2 ML VIAL ONE (13:37)
[2018-11-27] MEDS ORDERED: fentaNYL 250 MCG/5 ML INJ ONE (13:37)
[2018-11-27] MEDS ORDERED: VANCOMYCIN 1 GM VIAL ONE (13:54)
[2018-11-27] MEDS ORDERED: LABETALOL HCL 5 MG/ML 20 ML MDV ONE (14:03)
[2018-11-27] MEDS ORDERED: ZOLPIDEM TARTRATE 5 MG TAB PO PRN (15:03)
[2018-11-27] MEDS ORDERED: FLUTICASONE NASAL 120 SPRAYS/16 GM MDI EACHNARE PRN (15:03)
[2018-11-27] MEDS ORDERED: HYDROmorphONE/DILAUDID 1 MG/ML INJ IVP PRN (15:08)
[2018-11-27] MEDS ORDERED: ONDANSETRON 4 MG/2 ML VIAL IVP PRN ×2 (15:08→15:33)
[2018-11-27] MEDS ORDERED: ALBUTEROL 3 ML DEYVIAL IH PRN (15:08)
[2018-11-27] MEDS ORDERED: NALOXONE HCL 0.4 MG/ML INJ IVP PRN (15:08)
[2018-11-27] MEDS ORDERED: HYDROmorphONE/DILAUDID 2 MG/ML INJ ONE (15:10)
[2018-11-27] MEDS ORDERED: GLYCOPYRROLATE 0.2 MG/1 ML VIAL ONE ×2 (15:27)
--- NOTE | 2018-11-27 15:31 | POSTOPPROG ---
Post Op Note Date of Operation: 11/27/18 Surgeon: Paul Hutson Optometrist Owner: Ting Anesthesiologist: Jerrod Anesthesia: GET(General Endotracheal) Pre-op Diagnosis: Left knee pain, infected left TKA prosthesis Post-op Diagnosis: Left knee pain, infected left TKA prosthesis Indication: Left knee pain, infected left TKA prosthesis Procedure: Left total knee arthroplasty revision Findings: Left knee pain, infected left TKA prosthesis Inf/Abcess present in the surg proc area at time of surgery?: No Depth: Deep Incisional (Fascial) EBL: 100-500
[2018-11-27] MEDS ORDERED: PROMETHAZINE HCL 25 MG/ML INJ IVP PRN (15:33)
[2018-11-27] MEDS ORDERED: METOCLOPRAMIDE 10 MG/2 ML VIAL IVP PRN (15:33)
[2018-11-27] MEDS ORDERED: DIPHENOXYLATE/ATROPINE LOMOTIL 1 TAB PO PRN (15:33)
[2018-11-27] MEDS ORDERED: POLYETHYLENE GLYCOL 3350 17 GM PKT PO PRN (15:33)
[2018-11-27] MEDS ORDERED: PROMETHAZINE HCL 25 MG SUPPR PR PRN (15:33)
[2018-11-27] MEDS ORDERED: BISACODYL 10 MG SUPP PR PRN (15:33)
[2018-11-27] MEDS ORDERED: LACTULOSE 20 GM/30 ML UDCUP PO PRN (15:33)
[2018-11-27] MEDS ORDERED: diphenhydrAMINE 25 MG CAP PO PRN (15:33)
[2018-11-27] MEDS ORDERED: ONDANSETRON DISINTEGRATING 4 MG TAB PO PRN (15:33)
[2018-11-27] MEDS ORDERED: NEOSTIGMINE METHYLSULFATE 10 MG/10 ML MDV ONE (15:35)
[2018-11-27] MEDS ORDERED: LR 1,000 ML IV SCH (16:00)
--- NOTE | 2018-11-27 16:14 | POSTANESTH ---
Post Anesthetic Evaluation Cardiovascular Status: Normal, Stable, Similar to Pre-Op Cond Respiratory Status: Similar to Pre-op Cond. Level of Consciousness/Mental Status: Can Participate in Eval, Mildly Sleepy, Arousable Pain Control: Adequate, Prn Tx Ordered Nausea/Vomiting Control: Adequate, Prn Tx Ordered Complications Possibly Related to Anesthesia: None Noted
[2018-11-27] MEDS ORDERED: fentaNYL 100 MCG/2 ML INJ ONE (16:18)
[2018-11-27] MEDS: fentaNYL 100 MCG/2 ML INJ IVP PRN ×2 (16:20→16:31)
[2018-11-27] MEDS ORDERED: HYDROmorphONE/DILAUDID 1 MG/ML INJ ONE (16:25)
[2018-11-27] MEDS: oxyCODONE IR 5 MG TAB PO PRN ×3 (17:26→22:10)
[2018-11-27] MEDS: CYCLOBENZAPRINE 10 MG TAB PO PRN (17:26)
[2018-11-27] MEDS: ASPIRIN 81 MG CHEWABLE TAB PO SCH (20:59)
[2018-11-27] MEDS: SENNOSIDES/DOCUSATE SODIUM TAB PO SCH (20:59)
[2018-11-27] MEDS: SERTRALINE HCL 50 MG TAB PO SCH (20:59)
[2018-11-27] MEDS: FAMOTIDINE 20 MG TAB PO SCH (20:59)
[2018-11-27] MEDS: ACETAMINOPHEN 325 MG TAB PO SCH (22:05)
[2018-11-27] MEDS: ceFAZolin 2 GM/DEXTROSE 100 ML IV SCH (22:05)
[2018-11-28] MEDS: TRANEXAMIC ACID 650 MG TAB PO SCH ×3 (00:09→14:38)
[2018-11-28] MEDS: ACETAMINOPHEN 325 MG TAB PO SCH ×4 (03:39→22:29)
[2018-11-28] MEDS: ceFAZolin 2 GM/DEXTROSE 100 ML IV SCH (05:17)
[2018-11-28] MEDS: oxyCODONE IR 5 MG TAB PO PRN ×5 (06:28→22:29)
--- NOTE | 2018-11-28 06:53 | SOAPPROG ---
SOAP Progress Note Assessment/Plan: Assessment: s/p revision left tka Plan:wants to go to snf 3 mn dvt precautions wbat rom as fara will follow 11/28/18 06:51 Subjective: min pain no cp or sob fara po Objective: Vital Signs Temp Pulse Resp BP Pulse Ox 36.6 C 93 18 125/69 H 94 11/28/18 03:53 11/28/18 03:53 11/28/18 03:53 11/28/18 03:53 11/28/18 03:53 Microbiology 11/27/18 14:15 Gram Stain - Final Knee - Eswab 11/27/18 14:05 Gram Stain - Final Knee - Eswab Laboratory Results 11/28/18 04:23 11/27/18 11/28/18 11/29/18 05:59 05:59 05:59 Intake Total 2185 Output Total 500 Balance 1685 dressing changed neg homans trey intact pf,df,ehl toes warm and pink cap refil 2-3 sec palp dp pulse xrays stable alignment, no fx or lucency ICD10 Worksheet Patient Problems: Problems Problem Status Onset Arthritis of knee Acute Infection of prosthetic left knee joint Acute
[2018-11-28] MEDS: SENNOSIDES/DOCUSATE SODIUM TAB PO SCH ×2 (07:48→22:29)
[2018-11-28] MEDS: buPROPion XL 150 MG TAB PO SCH (07:48)
[2018-11-28] MEDS: CHLORTHALIDONE 25 MG TAB PO SCH (07:49)
[2018-11-28] MEDS: FAMOTIDINE 20 MG TAB PO SCH ×2 (07:49→22:28)
[2018-11-28] MEDS: ASPIRIN 81 MG CHEWABLE TAB PO SCH ×2 (07:49→22:29)
[2018-11-28] MEDS: CYCLOBENZAPRINE 10 MG TAB PO PRN ×2 (07:50→18:40)
--- NOTE | 2018-11-28 08:25 | PDMN ---
Medical Necessity Medical necessity: [facility] IP only surgery; cpt 94082 L Total Knee Revision
--- NOTE | 2018-11-28 12:08 | ASMTCMCOM ---
CM Note CM Note Notes: Pt is s/p L TKA revision. She is requesting a SNF d/c to [facility]. Referral sent via [employer] and [facility] has accepted pt. Earliest d/c is Thursday 11/30 after required 3 midnight stay. D/C plan: [facility] Date Signed: 11/28/2018 12:07 PM Electronically Signed By:KYUNG Stack
[2018-11-28] MEDS: MAGNESIUM HYDROXIDE 30 ML UDCUP PO PRN (14:40)
[2018-11-28] MEDS: SERTRALINE HCL 50 MG TAB PO SCH (22:29)
[2018-11-29] MEDS: ACETAMINOPHEN 325 MG TAB PO SCH ×4 (04:04→22:36)
[2018-11-29] MEDS: oxyCODONE IR 5 MG TAB PO PRN ×4 (04:06→20:47)
[2018-11-29] MEDS: CYCLOBENZAPRINE 10 MG TAB PO PRN ×2 (06:08→13:47)
--- NOTE | 2018-11-29 06:53 | SOAPPROG ---
SOAP Progress Note Assessment/Plan: Assessment: s/p revision left tka Plan:wants to go to snf 3 mn dvt precautions wbat rom as fara will follow will start lovenox as patient to remain inpatient for 3 mn dvt prophylaxis 11/28/18 06:51 11/29/18 06:51 Subjective: pain waking up no cp or sob\ fara po Objective: Vital Signs Temp Pulse Resp BP Pulse Ox 36.3 C 82 16 133/67 H 97 11/28/18 23:57 11/28/18 23:57 11/28/18 23:57 11/28/18 23:57 11/28/18 23:57 Microbiology 11/27/18 14:05 Gram Stain - Final Knee - Eswab 11/27/18 14:15 Gram Stain - Final Knee - Eswab Laboratory Results 11/29/18 04:15 11/28/18 11/29/18 11/30/18 05:59 05:59 05:59 Intake Total 2185 Output Total 500 1200 Balance 1685 -1200 dressing has been changed intact pf,df,ehl toes warm and pink neg homans trey mild swelling to left lower ext ICD10 Worksheet Patient Problems: Problems Problem Status Onset Arthritis of knee Acute Infection of prosthetic left knee joint Acute
[2018-11-29] MEDS: FAMOTIDINE 20 MG TAB PO SCH ×2 (07:48→20:47)
[2018-11-29] MEDS: buPROPion XL 150 MG TAB PO SCH (07:49)
[2018-11-29] MEDS: CHLORTHALIDONE 25 MG TAB PO SCH (07:49)
[2018-11-29] MEDS: SENNOSIDES/DOCUSATE SODIUM TAB PO SCH ×2 (07:49→20:49)
[2018-11-29] MEDS: ENOXAPARIN 30 MG/0.3 ML SYR SC SCH ×2 (07:50→20:49)
[2018-11-29] MEDS: MAGNESIUM HYDROXIDE 30 ML UDCUP PO PRN (13:44)
[2018-11-29] MEDS: SERTRALINE HCL 50 MG TAB PO SCH (20:47)
[2018-11-30] MEDS: ACETAMINOPHEN 325 MG TAB PO SCH ×2 (03:47→09:37)
[2018-11-30] MEDS: oxyCODONE IR 5 MG TAB PO PRN ×2 (03:48→09:51)
[2018-11-30] MEDS ORDERED: HYDROCODONE/APAP 10/325 TAB PO PRN (06:45)
--- NOTE | 2018-11-30 06:51 | PDIAF ---
- Diagnosis Diagnosis: left knee revision Code Status: Full Code - Medication Management Discharge Medications: electronically signed and located in the Home Medication List. - Orders Services needed: Physical Therapy Diet Recommendation: no restrictions on diet Diet Texture: Regular Texture Diet Additional Instructions: TOTAL JOINT ARTHROPLASTY DISCHARGE INSTRUCTIONS 1. Your surgeon follows the [facility] protocol for reducing your risk of DVT (blood clots) following surgery. Medication will be ordered to prevent blood clots. A sudden increase in calf pain and/or swelling could indicate a blood clot in your leg. If this occurs, please call your surgeon or his/her assistant superintendent. An ultrasound of the leg may be necessary to diagnose a blood clot. If you have conditions that make you a higher risk for blood clots, your surgeon may use more aggressive ways to prevent them. Notify your surgeon if you think you are a high risk for blood clots. 2. Wear your white surgical stockings (SKY hose) for 2 weeks. This decreases your swelling and may help prevent blood clots. It is ok to remove SKY hose at night time to give your legs a break. 3. Swelling and bruising in the surgical leg is common. If you feel that it is excessive, please notify your surgeon. 4. Elevate your surgical leg with the ankle above the hip several times every day. Please keep the leg straight when you elevate by putting pillows under your foot. Do not put pillows under your knee. This will make being able to fully straighten more difficult. This is uncomfortable, but try to do it as much as possible. 5. For total knee replacements use compressive wrap on your knee for 3-5 days after surgery, then you can discontinue it. 6. Use a walker or crutches for 1-2 weeks. Progress your weight-bearing as tolerated. You may start to use a cane when you feel stable and safe. 7. You will receive physical therapy instructions in the hospital. Continue those exercises at home. There are additional exercises in the total joint booklet you were given before surgery. Outpatient physical therapy will begin 7- 10 days after surgery. Please schedule this in advance. 8. Use ice on your knee at least 3-5 times every day for 30 minutes. This helps reduce pain and swelling. Also use it at night before falling asleep. 9. Leave your surgical dressing in place for 2 weeks. Your dressing is water resistant, but not waterproof. Cover it with Saran Wrap or Kvscu-a-Xtov before showering. You may shower as soon as you feel safe entering a shower. If you notice bleeding from your incision 2 or 3 days after surgery, please notify your surgeon. 10. Due to narcotics, decreased activity and altered diet, most patients experience constipation after surgery. Use fimq-cbv-mauledw stool softeners while you are on narcotics. 11. You may drive a car when you are comfortable bearing weight, have good muscular control of your leg and are off narcotics. This usually occurs 2-4 weeks after surgery, depending on which leg was operated on. 12. If there are questions not addressed here, please refer the [facility] book given for more information. If you still have questions, please contact your surgeon s office. 13. If you have a life-threatening emergency, please call 911 and go to the emergency room immediately. For non-life threatening emergencies, please call your physicians office for advice before going to the emergency room. - Follow Up Care Current Providers and Referrals: Carli Harding PA [Primary Care Provider] - Paul Hutson MD [Medical Doctor] -
--- NOTE | 2018-11-30 06:53 | SOAPPROG ---
SOAP Progress Note Assessment/Plan: Assessment: s/p revision left tka Plan:wants to go to snf 3 mn dvt precautions wbat rom as fara will follow will start lovenox as patient to remain inpatient for 3 mn dvt prophylaxis d/c to snf today 11/28/18 06:51 11/29/18 06:51 11/30/18 06:51 Subjective: min complaints mild pain no cp or sob Objective: Vital Signs Temp Pulse Resp BP Pulse Ox 36.7 C 88 18 121/65 H 94 11/29/18 23:13 11/29/18 23:13 11/29/18 23:13 11/29/18 23:13 11/29/18 23:13 Microbiology 11/27/18 14:15 Gram Stain - Final Knee - Eswab 11/27/18 14:05 Gram Stain - Final Knee - Eswab Laboratory Results 11/29/18 04:15 11/29/18 11/30/18 12/01/18 05:59 05:59 05:59 Intake Total 1525 Output Total 1200 750 Balance -1200 775 dressing intact mild lower ext swelling, no ttp intact pfd,f,ehl toes warm and pink neg homans trey ICD10 Worksheet Patient Problems: Problems Problem Status Onset Arthritis of knee Acute Infection of prosthetic left knee joint Acute
--- NOTE | 2018-11-30 07:22 | GDS ---
[f rep st] DISCHARGE SUMMARY ADMISSION DIAGNOSIS: Failed left total knee arthroplasty. POSTOPERATIVE DIAGNOSIS: Failed left total knee arthroplasty. PROCEDURE: Revision, both components, left knee arthroplasty. OPERATIVE INDICATIONS: The patient is a 68-year-old woman who 8 months ago had a total knee replacem ent. This became infected. She underwent removal of her component with a cement spacer. She return s for elective revision of her total knee. HOSPITAL COURSE: Patient was admitted to the hospital floor after uncomplicated revision arthroplast y to her left knee replacement. She wished to go to the subacute rehab. She progressed slowly with physical therapy. At the time of discharge, she is tolerating an oral diet. Pain is well controlled on oral medicines. She is voiding without difficulty. Dressing is clean, dry, and intact. She und erstands her precautions. DISCHARGE ACTIVITY: Weightbearing as tolerated. Range of motion as tolerated. No soaking or immers ion. May shower without the bandage. Daily dressing changes. FOLLOWUP: Follow up in 2 weeks. Seek attention for increasing redness, swelling, drainage, discharg e, or other focal complaints. DISCHARGE MEDICATIONS: See chart. She will be placed on enoxaparin given the desire [facility]. /[id number]/MODL
--- NOTE | 2018-11-30 07:27 | GOP ---
[f rep st] OPERATIVE REPORT DATE OF OPERATION: 11/27/2018 SURGEON: Paul Hutson MD FLAME ANNEALING MACHINE OPERATOR: Efren Maguire, surgical asst, who was medical necessity for the entirety of the case. 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 POSTOPERATIVE DIAGNOSIS: Failed left total knee arthroplasty. PROCEDURE PERFORMED: Revision arthroplasty of both components, left knee. FINDINGS: SPECIMENS: Pathology as above. INDICATIONS: The patient is a 68-year-old woman who is known to me. She had primary total knee repl acement approximately 8 months previously. She subsequently developed an infection and required kia diego with antibiotic spacer. She has completed that course. All of her blood work and evaluations in dicate clearance of the infection. We therefore return electively for reimplantation of a total knee replacement. She understands the risks, benefits, alternatives, and wished to proceed. Written con sent was signed and placed in the patient's chart. DESCRIPTION OF PROCEDURE: The patient was identified in the preanesthesia area. The left knee clear ly demarcated as the operative site with indelible marker. She was given 2 g of Ancef intravenously en route to the operative suite. In the OR, general endotracheal anesthesia was administered. Atten tion was turned to the left knee, which was sterilely prepped and draped in the usual fashion. A riley rniquet was applied to the upper thigh. Appropriate time-out procedure was carried out. The limb wa s then sterilely prepped and draped in the usual fashion. Tourniquet inflated after exsanguination o f the limb to 275 mmHg. The previous incision was opened. Thick subcutaneous flaps were elevated. Tissue samples were sent both superficially and deep. The medial parapatellar arthrotomy was opened. Subperiosteal elevation was carried out to the mid coronal plane. There was scarring throughout th e knee which was excised to allow flexion of the knee. The cement spacer and remaining cement were w ithdrawn from both the femoral and tibial sides. The skin and subcutaneous tissue, underlying tissue and bone were then serially debrided. Tissue samples were sent for frozen analysis to evaluate for any evidence of inflammation or infection. Attention was first turned to the femur. Trial sizing re vealed a size 3 femur to be appropriate. A box cutting guide was then affixed, and the canal was edith med for planned stem implantation. A trial size 3 femur was assembled, impacted across the distal cu t surface of the femur, and felt to be stable and appropriate. The trial femoral component was withd rawn. Attention was then turned to the tibia. The proximal surface was cleared of any remaining sof t tissue. An intramedullary guide was placed after reaming of the canal and a proximal cut made to f reshen the bone surface. A size 3 tibial component was selected. This was pinned in the correct lalo entation. The central canal was then reamed, the lateral fins were then cut. A trial tibial assembl y was placed with a stem, the femur was placed with a stem, and this was brought over a polyethylene spacer into full extension and flexion. The patella was then everted, cut in a freehand cutting tech nique. Drill holes were made for a size 32 mm patella. The trial components were withdrawn. The jacinda ny surfaces were thoroughly cleansed and dried. In a sequential fashion, the tibia and femoral compo nents were then cemented with vancomycin impregnated cement. This was placed over a 19 mm thick poly ethylene spacer until the cement had fully cured. The patella was also cemented in a standard fashio n. All marginal cement was withdrawn. The cement was allowed to fully cure. Trialing revealed a 22 mm X3 polyethylene to be appropriate. This was impacted, confirmed to be fully seated. This was a total stabilizing polyethylene, and a central keel peg was then placed and confirmed to be fully seat ed. This allowed full extension of the knee without hyperextension, no instability to varus or valgu s stress through the flexion-extension arc, and flexion to 125 degrees without instability. The woun d was copiously irrigated. The margins were instilled with a joint cocktail of ropivacaine, Toradol, and epinephrine. The medial parapatellar arthrotomy closed using #1 Ethibond suture, the subcutaneo us tissue closed using 2-0 Monocryl, and the skin was stapled. A sterile dressing was applied. Filiberto pruett, the pathologic analysis of the tissue revealed no evidence of inflammation or infection. This w as done prior to any implantation of the new knee replacement. The patient was taken to the recovery room in good, stable condition. TOTAL TOURNIQUET TIME: 98 minutes. COMPLICATIONS: None. DISPOSITION: To the recovery room, then the floor. She is weightbearing, range of motion as tolerat ed. IMPLANTS: Triathlon total stabilizer femoral component size 3. Triathlon total knee cemented stem, 15 x 50 mm. Total knee universal tibial baseplate, size 3. Total knee cemented stem, 12 x 50 mm. A n X3 asymmetric patella, a 32; and X3 total stabilizer tibial insert size 3, 22 mm. DISPOSITION: As above. /[id number]/MODL
--- NOTE | 2018-11-30 09:24 | ASMTLACE ---
LACE Length of stay for Answers: 4-6 days current admission Acuity / Level of Answers: Yes Care: Did the patient have an inpatient admission? Comorbidities - select Answers: Opioid dependence all that apply / Chronic pain # of Emergency department Answers: 0 visits in the last 6 months Social determinants Answers: Mental health diagnosis (anxiety, depression, pers onality disorders, etc.) Score: 14 Date Signed: 11/30/2018 09:23 AM Electronically Signed By:KYUNG Kennedy
--- NOTE | 2018-11-30 09:25 | ASMTCMCOM ---
CM Note CM Note Notes: Pt medically stable for d/c to [email or web address]. Orders sent in [employer]. YANE Piña to call report. Diane with [facility] scheduled wc transport for 11:00. Date Signed: 11/30/2018 09:24 AM Electronically Signed By:KYUNG Kennedy
[2018-11-30] MEDS: buPROPion XL 150 MG TAB PO SCH (09:35)
[2018-11-30] MEDS: FAMOTIDINE 20 MG TAB PO SCH (09:36)
[2018-11-30] MEDS: ENOXAPARIN 30 MG/0.3 ML SYR SC SCH (09:36)
[2018-11-30] MEDS: CHLORTHALIDONE 25 MG TAB PO SCH (09:37)
[2018-11-30] MEDS: SENNOSIDES/DOCUSATE SODIUM TAB PO SCH (09:37)
[2018-11-30 09:40] VITALS: BP 143/78
--- NOTE | 2018-11-30 11:44 | ASDISCHSUM ---
Discharge Information Plan Status:SNF Medically Cleared to Leave: Discharge Date:11/30/2018 11:17 AM CM D/C Disposition: ADT D/C Disposition:Custodial Facility Projected Discharge Date:11/30/2018 11:00 AM Transportation at D/C: Discharge Delay Reason: Follow-Up Date:11/30/2018 11:00 AM Discharge Slot: Final Diagnosis: Placement Information Referral Type:*Snf/SNF Referral ID:[id number] Provider Name:Elena Alberto [address] [place] Phone Number: Address 2: Fax Number: Rosa Elena:David Selection Factors: State:[place] Patient Contact Information Contact Name:JESSICA Relationship: Address: Work Phone: [facility]: [facility] Phone: [facility] Code: Email: Financial Information Financial Class:Medicare Primary Plan Desc:MEDICARE INPATIENT Primary Plan Number:[id number] Secondary Plan Desc:[employer]ARP/MDR SUPPLEMENT Secondary Plan Number:[id number] Assessment Information LACE LACE Length of stay for Answers: 4-6 days current admission Acuity / Level of Answers: Yes Care: Did the patient have an inpatient admission? Comorbidities - select Answers: Opioid dependence all that apply / Chronic pain # of Emergency department Answers: 0 visits in the last 6 months Social determinants Answers: Mental health diagnosis (anxiety, depression, pers onality disorders, etc.) Score: 14 Date Signed: 11/30/2018 09:23 AM Electronically Signed By:KYUNG Kennedy [facility] Progress Note CM Note CM Note Notes: Pt is s/p L TKA revision. She is requesting a SNF d/c to [facility]. Referral sent via [employer] and [facility] has accepted pt. Earliest d/c is Thursday 11/30 after required 3 midnight stay. D/C plan: [facility] Date Signed: 11/28/2018 12:07 PM Electronically Signed By:KYUNG Stack [facility] CM Progress Note CM Note CM Note Notes: Pt medically stable for d/c to [facility]. Orders sent in [employer]. YANE Piña to call report. Diane with [facility] scheduled wc transport for 11:00. Date Signed: 11/30/2018 09:24 AM Electronically Signed By:KYUNG Kennedy Intervention Information
== END 2018-11-30 11:17 | DRG 468 ==
LOC: F3N 12:32
PROVIDERS: ADMIT Orthopaedic Surgery; ATTEND Orthopaedic Surgery
PROC: 0SRD0J9 Replacement of Left Knee Joint with Synthetic Substitute, Cemented, Open Approach (ICD-10-PCS; principal; 2018-11-27 14:45)
PROC: 0SPD08Z Removal of Spacer from Left Knee Joint, Open Approach (ICD-10-PCS; principal; 2018-11-27 14:45)
DX: Z47.33 Aftercare following explantation of knee joint prosthesis (principal); T84.54XD Infection and inflammatory reaction due to internal left knee prosthesis, subsequent encounter; F41.9 Anxiety disorder, unspecified; F32.9 Major depressive disorder, single episode, unspecified; I10 Essential (primary) hypertension; G47.00 Insomnia, unspecified
CPT/HCPCS: 97110-GP; 97116-GP; 97161-GP; 97166-GO; 97535-GO; C1713; J0171; J0690; J1100; J1170; J1650; J1885; J2001; J2250; J2270; J2405; J2704; J2795; J3010; J3370